=== PATIENT | male | born 1960 | race Caucasian/White ===

== ENCOUNTER 2017-06-18 14:21 | Inpatient (IN) | payer BC, OTHER ==
[~2017-06-18] VITALS: Ht 170.2 cm; Wt 87.5 kg
[~2017-06-18 14:21] MED LIST: AMLO10 PO; ASPI81 PO; CALC600T34 PO; CLOP75 PO; NEXI40CA PO; NIAS10004 PO; OMEG1CAP53 PO; PRAV40TA PO; TAB-TAB PO; TOPR50TA PO; VITA400C70 PO
[2017-06-18 14:24] VITALS: BP 138/72; PULSE 87; RESP 12; TEMP 98.4; O2SAT 97
[2017-06-18 15:53] VITALS: BP 132/85; PULSE 76; RESP 18; O2SAT 99
[2017-06-18] MEDS ORDERED: SODIUM CHLORIDE 0.9% FLUSH 10 ML FLUSH IV FLUSH PRN ×3 (16:00→18:45)
--- NOTE | 2017-06-18 16:06 | PD ---
HPI Chief Complaint: Edema Time Seen by Provider: 15:38 Travel History International Travel<30 days: No Contact w/Intl Traveler<30days: No Traveled to known affect area: No History of Present Illness HPI 57-year-old male with PMH of cirrhosis, chronic alcoholism presents to the ED for evaluation of three-month history of gradual abdominal distention. He states over the last few days the distention has grown to the point where he feels like he is having difficulties breathing. He denies headache, dizziness, fever, chills, chest pain, palpitations, cough, nausea, vomiting, changes in bowel habits. He states that he's been caring for his significant other which has kept him from seeking treatment. He denies history of paracentesis. He is followed by Dr. Brower. COUNTS INCLUDE 234 BEDS AT THE [facility] Past Medical History Blood Disorders: No Anxiety: Yes Heart Rhythm Problems: No Cancer: No Cardiac Catheterization: Yes Cardiovascular Problems: Yes High Cholesterol: Yes Chemotherapy: No Chest Pain: Yes Congestive Heart Failure: No Endocrine: No Gastrointestinal Disorders: Yes GERD: No Genitourinary: No Hepatitis: No Hiatal Hernia: No Hypertension: Yes Immune Disorder: No Medical other: Yes (faaty liver, cirrosis ) Musculoskeletal: No Neurologic: No Psychiatric: No Reproductive: No Respiratory: No Myocardial Infarction: No Radiation Therapy: No Ulcer: No Past Surgical History Abdominal Surgery: Yes (inginal hernia) AICD: No Appendectomy: Yes Arteriovenous Shunt: No Cardiac Surgery: No Cholecystectomy: No Ear Surgery: No Endocrine Surgery: No Eye Surgery: No Genitourinary Surgery: No Gynecologic Surgery: No Insulin Pump: No Joint Replacement: Yes (l knee) Oral Surgery: No Pacemaker: No Thoracic Surgery: No Other Surgery: Yes Social History Alcohol Use: Yes Tobacco Use: Yes (/2 pk) Substance Use: No Allergies-Medications (Allergen,Severity, Reaction): Coded Allergies: No Known Allergies (Verified Allergy, Severe, 06/18/17) Reported Meds & Prescriptions Reported Meds & Active Scripts Active Reported Allergy Relief (Loratadine) 10 Mg Tab 10 Mg PO DAILY Fluticasone Nasal [place] 50 Mcg/Act Naspr 100 Mcg EACH NARE DAILY 50 mcg/spray Aspirin 81 Mg Chew 81 Mg CHEW DAILY Buspirone (Buspirone HCl) 10 Mg Tab 10 Mg PO BID Clonazepam 1 Mg Tab 1 Mg PO BID Dicyclomine (Dicyclomine HCl) 10 Mg Cap 10 Mg PO TID Lisinopril 20 Mg Tab 20 Mg PO BID Amlodipine (Amlodipine Besylate) 10 Mg Tab 10 Mg PO DAILY Metoprolol Succinate ER 24 HR (Metoprolol Succinate) 50 Mg Tab 50 Mg PO DAILY Clopidogrel (Clopidogrel Bisulfate) 75 Mg Tab 75 Mg PO DAILY Pantoprazole (Pantoprazole Sodium) 40 Mg Tab 40 Mg PO DAILY Review of Systems Except as stated in HPI: all other systems reviewed are Neg Physical Exam Narrative GENERAL: Well-nourished, well-developed nontoxic-appearing white male in no acute distress. SKIN: Focused skin assessment warm/dry. HEAD: Normocephalic. EYES: No scleral icterus. No injection or drainage. NECK: Supple, trachea midline. No JVD or lymphadenopathy. CARDIOVASCULAR: Regular rate and rhythm without murmurs, gallops, or rubs. RESPIRATORY: Breath sounds clear and equal bilaterally. No accessory muscle use. GASTROINTESTINAL: Abdomen distended, tense, positive fluid wave. Nontender. MUSCULOSKELETAL: No cyanosis, or edema. Chronic skin changes in the bilateral lower extremities. BACK: Nontender without obvious deformity. No CVA tenderness. Data Data Last Documented VS Vital Signs Date Time Temp Pulse Resp B/P (MAP) Pulse Ox O2 Delivery O2 Flow Rate FiO2 06/18/17 15:53 73 19 100 06/18/17 15:53 132/85 (101) 06/18/17 14:24 98.4 Orders Orders Complete Blood Count With Diff (06/18/17 15:48) Comprehensive Metabolic Panel (06/18/17 15:48) Lactic Acid (06/18/17 15:48) Prothrombin Time / Inr (Pt) (06/18/17 15:48) Act Partial Throm Time (Ptt) (06/18/17 15:48) Urinalysis - C+S If Indicated (06/18/17 15:48) Iv Access Insert/Monitor (06/18/17 15:48) Ecg Monitoring (06/18/17 15:48) Oximetry (06/18/17 15:48) NPO (06/18/17 15:48) Sodium Chloride 0.9% Flush (Ns Flush) (06/18/17 16:00) Electrocardiogram (06/18/17 15:48) Ammonia (06/18/17 16:04) Alcohol (Ethanol) (06/18/17 16:10) Consult Gastroenterology (06/18/17 ) (Hub Use Only)Inp Phy Cons/Ref (06/18/17 ) Admit Order (Ed Use Only) (06/18/17 18:19) Labs Laboratory Tests Test 06/18/17 16:10 White Blood Count 6.1 TH/MM3 Red Blood Count 4.33 MIL/MM3 Hemoglobin 14.7 GM/DL Hematocrit 41.9 % Mean Corpuscular Volume 97.0 FL Mean Corpuscular Hemoglobin 34.0 PG Mean Corpuscular Hemoglobin Concent 35.0 % Red Cell Distribution Width 12.7 % Platelet Count 145 TH/MM3 Mean Platelet Volume 8.4 FL Neutrophils (%) (Auto) 60.9 % Lymphocytes (%) (Auto) 26.1 % Monocytes (%) (Auto) 11.2 % Eosinophils (%) (Auto) 1.0 % Basophils (%) (Auto) 0.8 % Neutrophils # (Auto) 3.7 TH/MM3 Lymphocytes # (Auto) 1.6 TH/MM3 Monocytes # (Auto) 0.7 TH/MM3 Eosinophils # (Auto) 0.1 TH/MM3 Basophils # (Auto) 0.0 TH/MM3 CBC Comment DIFF FINAL Differential Comment Prothrombin Time 12.9 SEC Prothromb Time International Ratio 1.3 RATIO Activated Partial Thromboplast Time 33.1 SEC Blood Urea Nitrogen 5 MG/DL Creatinine 0.68 MG/DL Random Glucose 66 MG/DL Total Protein 8.6 GM/DL Albumin 3.4 GM/DL Calcium Level 9.1 MG/DL Alkaline Phosphatase 159 U/L Aspartate Amino Transf (AST/SGOT) 24 U/L Alanine Aminotransferase (ALT/SGPT) 15 U/L Total Bilirubin 1.1 MG/DL Sodium Level 121 MEQ/L Potassium Level 4.4 MEQ/L Chloride Level 89 MEQ/L Carbon Dioxide Level 20.2 MEQ/L Anion Gap 12 MEQ/L Estimat Glomerular Filtration Rate 120 ML/MIN Lactic Acid Level 1.6 mmol/L Ammonia 11 MCMOL/L Ethyl Alcohol Level 34 MG/DL MDM Medical Decision Making Medical Screen Exam Complete: Yes Emergency Medical Condition: Yes Differential Diagnosis Alcohol cirrhosis versus liver failure versus ascites versus SBP versus electrolyte abnormality versus other Narrative Course 57-year-old male with PMH of cirrhosis, chronic alcoholism presents to the ED for evaluation of 3 month history of worsening belly distention, no states that he feels short of breath secondary to the size of his abdomen. Vitals reviewed. Patient is afebrile on presentation. On physical exam the patient has a markedly distended belly with positive fluid wave. Exam is otherwise unremarkable. EKG: Rate 76, sinus rhythm. MS interval 182, QRS 146, QTC 453 ms. Normal axis. LBBB. No acute ST changes. Reviewed by Dr. Mahan. CBC: WBC 6.1. Hemoglobin 14.7. Coags INR 1.3. CMP: Sodium 121, chloride 89, BUN 5, creatinine 0.68. Bilirubin 1.1. AST 24, ALT 15. Lactic acid 1.6. Ammonia 11 EtOH 34. UA pending Given the patient's hyponatremia, he'll be admitted to the medicine service. He 'll likely need paracentesis, possibly on an outpatient basis. Patient is agreeable to admission. He states that he is followed by Dr. Jennings, consult placed. I spoke with Dr. Wilcox who agrees to accept the patient to the medicine service. Please see medicine notes for disposition. Mago Kennedy Jun 18, 2017 16:06
[2017-06-18] MEDS ORDERED: CLON1TAB PO (16:34)
[2017-06-18] MEDS ORDERED: METO1TAB9 PO (16:34)
[2017-06-18] MEDS ORDERED: PANT40TA3 PO (16:34)
[2017-06-18] MEDS ORDERED: ASPI-516 CHEW (16:34)
[2017-06-18] MEDS ORDERED: LISI-515 PO (16:34)
[2017-06-18] MEDS ORDERED: BUSP10TA PO (16:34)
[2017-06-18] MEDS ORDERED: AMLO10TA2 PO (16:34)
[2017-06-18] MEDS ORDERED: FLUT50SP EACH NARE (16:34)
[2017-06-18] MEDS ORDERED: CLOP75TA PO (16:34)
[2017-06-18] MEDS ORDERED: LORA-650 PO (16:34)
[2017-06-18] MEDS ORDERED: DICY10CA12 PO (16:34)
[2017-06-18 16:36] LABS: AUTOMATED NEUTROPHIL # 3.7 TH/MM3 (1.8-7.7); BASOPHIL % 0.8 % (0.0-2.0); EOSINOPHIL # 0.1 TH/MM3 (0-0.4); HEMATOCRIT 41.9 % (39.0-51.0); HEMO FLAGS DIFF FINAL; LYMPH % 26.1 % (9.0-44.0); LYMPHOCYTE # 1.6 TH/MM3 (1.0-4.8); MONO % 11.2 % (0.0-8.0); NEUT % 60.9 % (16.0-70.0); PLATELET COUNT 145 TH/MM3 (150-450); RED BLOOD COUNT 4.33 MIL/MM3 (4.50-5.90); RED CELL DISTRIBUTION WIDTH 12.7 % (11.6-17.2); WHITE BLOOD COUNT 6.1 TH/MM3 (4.0-11.0)
[2017-06-18 16:49] LABS: APTT (PATIENT) 33.1 SEC (24.3-30.1); INTERNATIONAL NORMALIZED RATIO 1.3 RATIO; PROTHROMBIN TIME - PATIENT 12.9 SEC (9.8-11.6)
[2017-06-18 17:29] LABS: ALKALINE PHOSPHATASE 159 U/L (45-117); ALT (GPT) 15 U/L (12-78); ANION GAP 12 MEQ/L (5-15); AST (GOT) 24 U/L (15-37); BICARBONATE 20.2 MEQ/L (21.0-32.0); BLOOD UREA NITROGEN 5 MG/DL (7-18); CHLORIDE 89 MEQ/L (98-107); GLOMERULAR FILTRATION RATE 120 ML/MIN (>89); POTASSIUM 4.4 MEQ/L (3.5-5.1); TOTAL BILIRUBIN ADULT 1.1 MG/DL (0.2-1.0)
[2017-06-18 17:30] LABS: ALCOHOL 34 MG/DL (0-5)
[2017-06-18 17:32] LABS: SODIUM (NA) 121 MEQ/L (136-145)
[2017-06-18] MEDS ORDERED: LORazepam 2 MG TAB PO PRN (18:45)
[2017-06-18] MEDS ORDERED: LORazepam 2 MG/ML VIAL IV PUSH PRN ×4 (18:45)
[2017-06-18] MEDS ORDERED: cloNIDine HCL 0.1 MG TAB PO PRN (18:45)
[2017-06-18] MEDS ORDERED: MAGNESIUM HYDROXIDE SUSP 30 ML CUP PO PRN (18:45)
[2017-06-18] MEDS ORDERED: LACTULOSE SYRUP 20 GM/30 ML CUP PO PRN (18:45)
[2017-06-18] MEDS ORDERED: HALOPERIDOL LACTATE 5 MG/ML AMP IM PRN (18:45)
[2017-06-18] MEDS ORDERED: BISACODYL 10 MG SUPP RECTAL PRN (18:45)
[2017-06-18] MEDS ORDERED: ACETAMINOPHEN 325 MG TAB PO PRN ×2 (18:45)
[2017-06-18] MEDS ORDERED: MORPHINE SULFATE 4 MG/ML INJ IV PUSH PRN ×2 (18:45)
[2017-06-18] MEDS ORDERED: FLUMAZENIL 0.5 MG/5 ML VIAL IV PUSH PRN (18:45)
[2017-06-18] MEDS ORDERED: LORazepam 1 MG TAB PO PRN (18:45)
[2017-06-18] MEDS ORDERED: ONDANSETRON HCL 4 MG/2 ML VIAL IVP PRN (18:45)
[2017-06-18] MEDS ORDERED: SENNOSIDES 8.6 MG TAB PO PRN (18:45)
[2017-06-18] MEDS ORDERED: NALOXONE HCL 0.4 MG/ML AMP IV PUSH PRN (18:45)
--- NOTE | 2017-06-18 19:06 | HHI.HP ---
HPI Service [facility] Primary Care Physician Dwight Brower MD Admission Diagnosis hyponatremia, ascites Diagnoses: (1) Hyponatremia Diagnosis: Principal (2) Alcohol abuse Diagnosis: Principal (3) Cirrhosis Diagnosis: Principal (4) Ascites Diagnosis: Principal (5) Thrombocytopenia Diagnosis: Principal (6) Tobacco abuse Diagnosis: Principal Travel History International Travel<30 Days: No Contact w/Intl Traveler <30 Da: No Traveled to Known Affected Are: No History of Present Illness This is a 57-year-old male with a PMH of Alcohol Abuse, Cirrhosis, Anxiety, HTN and Tobacco Abuse who presented to the ER with complaints of abdominal pain and distention x2-3 months. States symptoms have been getting progressively worse over the last 3 days. Reports associated SOB from distention. Denies fever, chills. On arrival, BP 138/72, HR 87, O2 sat 97% on RA, Afebrile. CBC essentially unremarkable except for platelets 145, previously 183 on 09/01/07. Na 121. Lactic Acid normal. Ammonia 11. INR 1.3. Alcohol 34. U/a negative. +ascites on exam. Review of Systems Except as stated in HPI: all other systems reviewed are Neg ROS: 14 point review of systems otherwise negative. Past Family Social History Past Medical History PMH: Alcohol Abuse, Cirrhosis, Anxiety, HTN and Tobacco Abuse Past Surgical History PAST SURGICAL HISTORY: Appendectomy, Inguinal Hernia Repair, Knee Replacement Allergies: Coded Allergies: No Known Allergies (Verified Allergy, Severe, 06/18/17) Family History PAST FAMILY HISTORY: Reviewed. No h/o DM or CAD Social History PAST SOCIAL HISTORY: Positive for alcohol abuse. Smokes 1/2ppd. Negative for drugs. Physical Exam Vital Signs Vital Signs Date Time Temp Pulse Resp B/P (MAP) Pulse Ox O2 Delivery O2 Flow Rate FiO2 06/18/17 15:53 73 19 100 06/18/17 15:53 76 18 132/85 (101) 99 06/18/17 15:52 (94) 06/18/17 14:24 98.4 87 12 138/72 (94) 97 Physical Exam PE: GENERAL: Middle-aged male in no acute distress. HEENT: PERRLA, EOMI. No scleral icterus or conjunctival pallor. No lid lag or facial droop. CARDIOVASCULAR: Regular rate and rhythm. No obvious murmurs to auscultation. No chest tenderness to palpation. RESPIRATORY: No obvious rhonchi or wheezing. Clear to auscultation. Breath sounds equal bilaterally. GASTROINTESTINAL: Abdomen distended, +tense ascites, no tenderness to palpation. BS normal. MUSCULOSKELETAL: Extremities without clubbing, cyanosis, or edema. No obvious deformities. NEUROLOGICAL: Awake, alert and oriented x4. No focal neurologic deficits. Moving both upper and lower extremities spontaneously. Laboratory Laboratory Tests Test 06/18/17 16:10 White Blood Count 6.1 Red Blood Count 4.33 Hemoglobin 14.7 Hematocrit 41.9 Mean Corpuscular Volume 97.0 Mean Corpuscular Hemoglobin 34.0 Mean Corpuscular Hemoglobin Concent 35.0 Red Cell Distribution Width 12.7 Platelet Count 145 Mean Platelet Volume 8.4 Neutrophils (%) (Auto) 60.9 Lymphocytes (%) (Auto) 26.1 Monocytes (%) (Auto) 11.2 Eosinophils (%) (Auto) 1.0 Basophils (%) (Auto) 0.8 Neutrophils # (Auto) 3.7 Lymphocytes # (Auto) 1.6 Monocytes # (Auto) 0.7 Eosinophils # (Auto) 0.1 Basophils # (Auto) 0.0 CBC Comment DIFF FINAL Differential Comment Prothrombin Time 12.9 Prothromb Time International Ratio 1.3 Activated Partial Thromboplast Time 33.1 Blood Urea Nitrogen 5 Creatinine 0.68 Random Glucose 66 Total Protein 8.6 Albumin 3.4 Calcium Level 9.1 Alkaline Phosphatase 159 Aspartate Amino Transf (AST/SGOT) 24 Alanine Aminotransferase (ALT/SGPT) 15 Total Bilirubin 1.1 Sodium Level 121 Potassium Level 4.4 Chloride Level 89 Carbon Dioxide Level 20.2 Anion Gap 12 Estimat Glomerular Filtration Rate 120 Lactic Acid Level 1.6 Ammonia 11 Ethyl Alcohol Level 34 Result Diagram: 06/18/17 1610 06/18/17 1610 Caprini VTE Risk Assessment Caprini VTE Risk Assessment: No/Low Risk (score <= 1) VTE Pharm Contraindication: High risk for bleeding Caprini Risk Assessment Model Point Value = 1 Point Value = 2 Point Value = 3 Point Value = 5 Age 41-60 Minor surgery BMI > 25 kg/m2 Swollen legs Varicose veins or History of unexplained or recurrent spontaneous Oral contraceptives or hormone replacement Sepsis (< 1 month) Serious lung disease, including pneumonia (< 1 month) Abnormal pulmonary function Acute myocardial infarction Congestive heart failure (< 1 month) History of inflammatory bowel disease Medical patient at bed rest Age 61-74 Arthroscopic surgery Major open surgery (> 45 min) Laparoscopic surgery (> 45 min) Malignancy Confined to bed (> 72 hours) Immobilizing plaster cast Central venous access Age >= 75 History of VTE Family history of VTE Factor V Leiden Prothrombin [id number] Lupus anticoagulant Anticardiolipin antibodies Elevated serum homocysteine Heparin-induced thrombocytopenia Other congenital or acquired thrombophilia Stroke (< 1 month) Elective arthroplasty Hip, pelvis, or leg fracture Acute spinal cord injury (< 1 month) Prophylaxis Regimen Total Risk Factor Score Risk Level Prophylaxis Regimen 0-1 Low Early ambulation 2 Moderate Order ONE of the following: *Sequential Compression Device (SCD) *Heparin 5000 units SQ BID 3-4 Higher Order ONE of the following medications: *Heparin 5000 units SQ TID *Enoxaparin/Lovenox 40 mg SQ daily (WT < 150 kg, CrCl > 30 mL/min) *Enoxaparin/Lovenox 30 mg SQ daily (WT < 150 kg, CrCl > 10-29 mL/min) *Enoxaparin/Lovenox 30 mg SQ BID (WT < 150 kg, CrCl > 30 mL/min) AND/OR *Sequential Compression Device (SCD) 5 or more Highest Order ONE of the following medications: *Heparin 5000 units SQ TID (Preferred with Epidurals) *Enoxaparin/Lovenox 40 mg SQ daily (WT < 150 kg, CrCl > 30 mL/min) *Enoxaparin/Lovenox 30 mg SQ daily (WT < 150 kg, CrCl > 10-29 mL/min) *Enoxaparin/Lovenox 30 mg SQ BID (WT < 150 kg, CrCl > 30 mL/min) AND *Sequential Compression Device (SCD) Assessment and Plan Problem List: (1) Alcohol abuse ICD Code: F10.10 - Alcohol abuse, uncomplicated (2) Cirrhosis ICD Code: K74.60 - Unspecified cirrhosis of liver (3) Ascites ICD Code: R18.8 - Other ascites (4) Hyponatremia ICD Code: E87.1 - Hypo-osmolality and hyponatremia (5) Thrombocytopenia ICD Code: D69.6 - Thrombocytopenia, unspecified (6) Tobacco abuse ICD Code: Z72.0 - Tobacco use Assessment and Plan A/P: 1. Alcohol Abuse: Chronic. Alcohol 34, high risk for withdrawal, start CIWA, Seizure Precautions, MVT/Thiamine/Folate replacement. 2. Cirrhosis: Secondary to chronic alcohol abuse. LFTs normal, +coagulopathy w/ INR 1.3, no active bleeding at this time, will monitor closely. Ammonia normal. Repeat labs in am. 3. Ascites: c/o progressive abdominal distention, +tense ascites. IR Consult placed for US Guided Paracentesis, pending procedure. 4. Hyponatremia: Na 121, likely secondary to chronic alcohol abuse, repeat labs in am. 5. Thrombocytopenia: Platelets 145, previously 183 on 09/01/07. No active bleeding at this time, will monitor. Repeat labs in am. 6. Tobacco Abuse: Pt counselled. NicoDerm prn if needed. 7. DVT Prophylaxis: Pharmacologic contraindication secondary to high risk for bleed 8. Social work for d/c planning as needed. 9. Case discussed w/ ER physician at length. Physician Certification 2 Midnight Certification Type: Admission for Inpatient Services Order for Inpatient Services The services are ordered in accordance with Medicare regulations or non- Medicare payer requirements, as applicable. In the case of services not specified as inpatient-only, they are appropriately provided as inpatient services in accordance with the 2-midnight benchmark. Estimated LOS (days): 2 days is the estimated time the patient will need to remain in the hospital, assuming treatment plan goals are met and no additional complications. Post-Hospital Plan: Not yet determined Blanche Hernandez MD Jun 18, 2017 19:06
[2017-06-18 19:57] LABS: BLOOD, URINE NEG (NEG); GLUCOSE,URINE NEG (NEG); KETONE, URINE TRACE mg/dL (NEG); NITRITE,URINE NEG (NEG); PH, URINE 5.5 (5.0-8.5); URINE COLOR LIGHT-YELLOW (YELLW/STRAW)
[2017-06-18 20:00] VITALS: BP 114/61; PULSE 85; RESP 18; TEMP 97.2; O2SAT 97
[2017-06-18 20:01] LABS: COMMENT (UR) CULT NOT INDICATED; CULTURE IF INDICATED CULT NOT INDICATED
[2017-06-18] MEDS: DOCUSATE SODIUM 50 MG/SENNA 8.6 MG TAB PO SCH (21:00)
[2017-06-18] MEDS ORDERED: SODIUM CHLORIDE 0.9% FLUSH 10 ML FLUSH IV FLUSH SCH (21:00)
[2017-06-18] MEDS: busPIRone HCL 10 MG TAB PO SCH (21:21)
[2017-06-18] MEDS: LISINOPRIL 20 MG TAB PO SCH (21:21)
[2017-06-18] MEDS: SODIUM CHLORIDE 0.9% FLUSH 10 ML FLUSH IV FLUSH SCH (21:21)
[2017-06-18] MEDS: clonazePAM 1 MG TAB PO SCH (21:21)
[2017-06-19] VITALS (11 sets, daily range): BP systolic 85–102; BP diastolic 53–64; PULSE 78–103; RESP 16–20; TEMP 97.9–98.8; O2SAT 93–97
[2017-06-19 08:27] LABS: HEMOGLOBIN A1a 1.5 %; HEMOGLOBIN A1b 0.6 %; HEMOGLOBIN Ao 86.3 %; HEMOGLOBIN F 1.3 %; HEMOGLOBIN LA1C 1.7 %; HEMOGLOBIN P3 3.1 %
[2017-06-19 08:31] LABS: AUTOMATED NEUTROPHIL # 2.9 TH/MM3 (1.8-7.7); EOSINOPHIL % 0.8 % (0.0-4.0); HEMATOCRIT 38.8 % (39.0-51.0); HEMO FLAGS DIFF FINAL; LYMPH % 24.3 % (9.0-44.0); LYMPHOCYTE # 1.1 TH/MM3 (1.0-4.8); MEAN CELL VOLUME 96.7 FL (80.0-100.0); MEAN CORPUSCULAR HEMOGLOBIN 34.1 PG (27.0-34.0); MEAN CORPUSCULAR HGB CONC 35.3 % (32.0-36.0); MONO % 12.3 % (0.0-8.0); NEUT % 61.6 % (16.0-70.0); PLATELET COUNT 139 TH/MM3 (150-450); RED BLOOD COUNT 4.01 MIL/MM3 (4.50-5.90); WHITE BLOOD COUNT 4.7 TH/MM3 (4.0-11.0)
[2017-06-19 08:33] LABS: APTT (PATIENT) 32.7 SEC (24.3-30.1); INTERNATIONAL NORMALIZED RATIO 1.2 RATIO; PROTHROMBIN TIME - PATIENT 12.4 SEC (9.8-11.6)
[2017-06-19] MEDS: SODIUM CHLORIDE 1 GRAM TAB PO SCH ×3 (08:36→17:43)
[2017-06-19] MEDS: DICYCLOMINE HCL 10 MG CAP PO SCH ×3 (08:36→17:43)
[2017-06-19] MEDS: METOPROLOL SUCCINATE 50 MG EXTENDED RELEASE TAB PO SCH (08:36)
[2017-06-19] MEDS: PANTOPRAZOLE SOD 40 MG DELAYED RELEASE TAB PO SCH (08:36)
[2017-06-19] MEDS: MULTIVITAMINS/MINERALS THERAPEUTIC TAB PO SCH (08:36)
[2017-06-19] MEDS: clonazePAM 1 MG TAB PO SCH ×2 (08:36→21:00)
[2017-06-19] MEDS: THIAMINE HCL 100 MG TAB PO SCH (08:36)
[2017-06-19] MEDS: FOLIC ACID 1 MG TAB PO SCH (08:36)
[2017-06-19] MEDS: LISINOPRIL 20 MG TAB PO SCH (08:36)
[2017-06-19] MEDS: busPIRone HCL 10 MG TAB PO SCH ×2 (08:36→21:00)
[2017-06-19] MEDS: DOCUSATE SODIUM 50 MG/SENNA 8.6 MG TAB PO SCH ×2 (08:36→21:00)
[2017-06-19] MEDS: LORATADINE 10 MG TAB PO SCH (08:36)
[2017-06-19] MEDS: SODIUM CHLORIDE 0.9% FLUSH 10 ML FLUSH IV FLUSH SCH ×2 (08:36→21:00)
[2017-06-19] MEDS: FLUTICASONE PROPIONATE 50 MCG/ACT 16 GM NASAL SPRAY EACH NARE SCH (08:41)
[2017-06-19 08:52] LABS: ANION GAP 11 MEQ/L (5-15); AST (GOT) 22 U/L (15-37); BICARBONATE 21.7 MEQ/L (21.0-32.0); BLOOD UREA NITROGEN 6 MG/DL (7-18); CHLORIDE 93 MEQ/L (98-107); GLOMERULAR FILTRATION RATE 106 ML/MIN (>89); MAGNESIUM 1.7 MG/DL (1.5-2.5); POTASSIUM 4.1 MEQ/L (3.5-5.1); SODIUM (NA) 126 MEQ/L (136-145)
[2017-06-19 08:54] LABS: ALT (GPT) 11 U/L (12-78); LDH SERUM 134 U/L (87-241)
[2017-06-19] MEDS ORDERED: DEXTROSE 50% IN WATER 50 ML VIAL(D50) IV PUSH PRN (09:00)
[2017-06-19] MEDS ORDERED: GLUCAGON 1 MG/ML VIAL OTHER PRN (09:00)
[2017-06-19] MEDS ORDERED: PANTOPRAZOLE SOD 40 MG DELAYED RELEASE TAB PO SCH (09:00)
[2017-06-19 09:02] LABS: ALKALINE PHOSPHATASE 133 U/L (45-117); FREE T4 1.19 NG/DL (0.76-1.46); TOTAL BILIRUBIN ADULT 1.1 MG/DL (0.2-1.0)
--- NOTE | 2017-06-19 12:58 | PD.CONS ---
HPI History of Present Illness This is a 57-year-old male with a PMH of Alcohol Abuse, Cirrhosis, Anxiety, HTN and Tobacco Abuse who presented to the ER with complaints of abdominal pain and distention for the past 3 months. States symptoms have been getting progressively worse with associated SOB from distention. Denies nausea, vomiting, hematemesis, hematochezia or melena, fever, or chills. He has been having diarrhea for the past 6months and states he had a couple of colonoscopies with Dr. Jennings who is trying to figure out a cause. On arrival CBC essentially unremarkable except for low platelets, Na 121, Lactic Acid normal, Ammonia 11. INR 1.3, Alcohol 34. U/a negative. +ascites on exam, paracentesis ordered can't be performed due to being on Plavix. Currently started on Lasix and Aldactone. (Edgardo Palomino) PFSH Past Medical History PMH: Alcohol Abuse, Cirrhosis, Anxiety, HTN and Tobacco Abuse Past Surgical History PAST SURGICAL HISTORY: Appendectomy, Inguinal Hernia Repair, Knee Replacement (Edgardo Palomino) Coded Allergies: No Known Allergies (Verified Allergy, Severe, 06/18/17) Medications Current Medications Medications (Trade) Dose Ordered Sig/Lorraine Route Start Time Stop Time Status Last Admin (Buspar) 10 mg BID PO 06/18/17 21:00 06/19/17 08:36 (KlonoPIN) 1 mg BID PO 06/18/17 21:00 06/19/17 08:36 (Bentyl) 10 mg TID PO 06/19/17 09:00 06/19/17 08:36 (Flonase Manny Spr) 1 spray DAILY EACH NARE 06/19/17 09:00 (Claritin) 10 mg DAILY PO 06/19/17 09:00 06/19/17 08:36 (Toprol Xl) 50 mg DAILY PO 06/19/17 09:00 (Protonix) 40 mg DAILY PO 06/19/17 09:00 06/19/17 08:36 (NS Flush) 2 ml UNSCH PRN IV FLUSH 06/18/17 18:45 (NS Flush) 2 ml BID IV FLUSH 06/18/17 21:00 06/19/17 08:36 (Tylenol) 650 mg Q4H PRN PO 06/18/17 18:45 (Zofran Inj) 4 mg Q6H PRN IVP 06/18/17 18:45 (Tylenol) 650 mg Q6H PRN PO 06/18/17 18:45 (Roxicodone) 10 mg Q4H PRN PO 06/18/17 18:45 (Morphine Inj) 2 mg Q3H PRN IV PUSH 06/18/17 18:45 (Morphine Inj) 4 mg Q3H PRN IV PUSH 06/18/17 18:45 (Roxicodone) 5 mg Q4H PRN PO 06/18/17 18:45 (Narcan Inj) 0.4 mg UNSCH PRN IV PUSH 06/18/17 18:45 (Lizet-Colace) 1 tab BID PO 06/18/17 21:00 06/19/17 08:36 (Milk Of Magnesia Liq) 30 ml Q12H PRN PO 06/18/17 18:45 (Senokot) 17.2 mg Q12H PRN PO 06/18/17 18:45 (Dulcolax Supp) 10 mg DAILY PRN RECTAL 06/18/17 18:45 (Lactulose Liq) 30 ml DAILY PRN PO 06/18/17 18:45 (Romazicon Inj) 0.2 mg Q1M PRN IV PUSH 06/18/17 18:45 (Ativan) 1 mg Q4H PRN PO 06/18/17 18:45 (Ativan Inj) 1 mg Q4H PRN IV PUSH 06/18/17 18:45 (Ativan) 2 mg Q2H PRN PO 06/18/17 18:45 (Ativan Inj) 2 mg Q2H PRN IV PUSH 06/18/17 18:45 (Ativan Inj) 2 mg Q1H PRN IV PUSH 06/18/17 18:45 (Ativan Inj) 2 mg Q15M PRN IV PUSH 06/18/17 18:45 (Haldol Inj) 2 mg Q15M PRN IM 06/18/17 18:45 (Folate) 1 mg DAILY PO 06/19/17 09:00 06/24/17 08:59 06/19/17 08:36 (Vitamin B1) 100 mg DAILY PO 06/19/17 09:00 06/19/17 08:36 (Theragran M Tab) 1 tab DAILY PO 06/19/17 09:00 06/24/17 08:59 06/19/17 08:36 (Catapres) 0.1 mg Q6H PRN PO 06/18/17 18:45 (Sodium Chloride) 1 gm TID PO 06/19/17 09:00 06/19/17 08:36 (D50w (Vial) Inj) 50 ml UNSCH PRN IV PUSH 06/19/17 09:00 (Glucagon Inj) 1 mg UNSCH PRN OTHER 06/19/17 09:00 (Lasix) 20 mg DAILY PO 06/19/17 12:30 (Aldactone) 25 mg BID@,18 PO 06/19/17 18:00 Family History No family hx of colon or liver cancer Social History PAST SOCIAL HISTORY: Positive for alcohol abuse ( pt states a couple of drinks a day). Smokes 1/2ppd. Negative for drugs. (Edgardo Palomino) Review of Systems Constitutional: COMPLAINS OF: Fatigue, Weight loss Endocrine: DENIES: Polyuria Eyes: DENIES: Double Vision Ears, nose, mouth, throat: DENIES: Hoarseness Respiratory: COMPLAINS OF: Shortness of breath Cardiovascular: DENIES: Lower Extremity Edema Gastrointestinal: COMPLAINS OF: Abdominal pain, Diarrhea, Swelling of Abdomen, DENIES: Black stools, Bloody stools, Constipation, Nausea, Vomiting, Difficulty Swallowing, Anorexia, Odynophagia, Heartburn, Hematemesis Genitourinary: DENIES: Hematuria Musculoskeletal: DENIES: Back pain Integumentary: DENIES: Jaundice Hematologic/lymphatic: DENIES: Bruising Immunologic/allergic: DENIES: Eczema Neurologic: DENIES: Abnormal gait Psychiatric: DENIES: Anxiety (Edgardo Palomino) GI Exam Vitals I&O Vital Signs Date Time Temp Pulse Resp B/P (MAP) Pulse Ox O2 Delivery O2 Flow Rate FiO2 06/19/17 08:01 97.9 92 16 100/58 (72) 97 06/19/17 05:50 98.6 78 20 95/64 (74) 95 06/19/17 04:00 80 06/19/17 03:43 93 06/19/17 00:00 80 06/19/17 00:00 98.2 84 20 96/53 (67) 93 06/18/17 20:00 97.2 85 18 114/61 (78) 97 06/18/17 20:00 Room Air 06/18/17 15:53 73 19 100 06/18/17 15:53 76 18 132/85 (101) 99 06/18/17 15:52 (94) 06/18/17 14:24 98.4 87 12 138/72 (94) 97 I/O 06/18/17 06/18/17 06/18/17 06/19/17 06/19/17 06/19/17 07:00 15:00 23:00 07:00 15:00 23:00 Intake Total 240 ml Balance 240 ml Intake Oral 240 ml # Voids 3 Laboratory Test 06/18/17 16:10 06/18/17 19:20 06/19/17 07:28 White Blood Count 6.1 TH/MM3 4.7 TH/MM3 Red Blood Count 4.33 MIL/MM3 4.01 MIL/MM3 Hemoglobin 14.7 GM/DL 13.7 GM/DL Hematocrit 41.9 % 38.8 % Mean Corpuscular Volume 97.0 FL 96.7 FL Mean Corpuscular Hemoglobin 34.0 PG 34.1 PG Mean Corpuscular Hemoglobin Concent 35.0 % 35.3 % Red Cell Distribution Width 12.7 % 13.0 % Platelet Count 145 TH/MM3 139 TH/MM3 Mean Platelet Volume 8.4 FL 9.0 FL Neutrophils (%) (Auto) 60.9 % 61.6 % Lymphocytes (%) (Auto) 26.1 % 24.3 % Monocytes (%) (Auto) 11.2 % 12.3 % Eosinophils (%) (Auto) 1.0 % 0.8 % Basophils (%) (Auto) 0.8 % 1.0 % Neutrophils # (Auto) 3.7 TH/MM3 2.9 TH/MM3 Lymphocytes # (Auto) 1.6 TH/MM3 1.1 TH/MM3 Monocytes # (Auto) 0.7 TH/MM3 0.6 TH/MM3 Eosinophils # (Auto) 0.1 TH/MM3 0.0 TH/MM3 Basophils # (Auto) 0.0 TH/MM3 0.0 TH/MM3 CBC Comment DIFF FINAL DIFF FINAL Differential Comment Prothrombin Time 12.9 SEC 12.4 SEC Prothromb Time International Ratio 1.3 RATIO 1.2 RATIO Activated Partial Thromboplast Time 33.1 SEC 32.7 SEC Blood Urea Nitrogen 5 MG/DL 6 MG/DL Creatinine 0.68 MG/DL 0.76 MG/DL Random Glucose 66 MG/DL 68 MG/DL Total Protein 8.6 GM/DL 7.6 GM/DL Albumin 3.4 GM/DL 2.9 GM/DL Calcium Level 9.1 MG/DL 9.1 MG/DL Alkaline Phosphatase 159 U/L 133 U/L Aspartate Amino Transf (AST/SGOT) 24 U/L 22 U/L Alanine Aminotransferase (ALT/SGPT) 15 U/L 11 U/L Total Bilirubin 1.1 MG/DL 1.1 MG/DL Sodium Level 121 MEQ/L 126 MEQ/L Potassium Level 4.4 MEQ/L 4.1 MEQ/L Chloride Level 89 MEQ/L 93 MEQ/L Carbon Dioxide Level 20.2 MEQ/L 21.7 MEQ/L Anion Gap 12 MEQ/L 11 MEQ/L Estimat Glomerular Filtration Rate 120 ML/MIN 106 ML/MIN Lactic Acid Level 1.6 mmol/L Ammonia 11 MCMOL/L Ethyl Alcohol Level 34 MG/DL Urine Color LIGHT-YELLOW Urine Turbidity CLEAR Urine pH 5.5 Urine Specific [place] 1.003 Urine Protein NEG mg/dL Urine Glucose (UA) NEG mg/dL Urine Ketones TRACE mg/dL Urine Occult Blood NEG Urine Nitrite NEG Urine Bilirubin NEG Urine Urobilinogen LESS THAN 2.0 MG/DL Urine Leukocyte Esterase NEG Urine WBC LESS THAN 1 /hpf Microscopic Urinalysis Comment CULT NOT INDICATED Phosphorus Level 3.3 MG/DL Magnesium Level 1.7 MG/DL Lactate Dehydrogenase 134 U/L Hemoglobin A1c 4.9 % Free Thyroxine 1.19 NG/DL Thyroid Stimulating Hormone 3rd Gen 1.910 uIU/ML Physical Examination HEENT: normocephalic; atraumatic; no jaundice. NECK: Neck is supple, no JVD, no lymphadenopathy. CHEST: Chest is clear to auscultation and percussion. CARDIAC: Regular rate and rhythm with no murmur gallop or rubs. ABDOMEN: Firm, distended, nontender; hepatosplenomegaly; bowel sounds are present in all four quadrants. + ascites EXTREMITIES: No clubbing, cyanosis, or edema. SKIN: Normal; no rash; no jaundice. SAS DEVELOPER: No focal deficits; alert and oriented times three. (Amawi,Khawla AUDIT ASSOCIATE) Assessment and Plan Plan - Ascites, hx of cirrhosis- distention for the past 3 months. States symptoms have been getting progressively worse with associated SOB from distention. Denies nausea, vomiting, hematemesis, hematochezia or melena, fever, or chills. He has been having diarrhea for the past 6months and states he had a couple of colonoscopies with Dr. Jennings who is trying to figure out a cause. On arrival CBC essentially unremarkable except for low platelets, Na 121, Lactic Acid normal, Ammonia 11. INR 1.3, Alcohol 34. U/a negative. +ascites on exam, paracentesis ordered can't be performed due to being on Plavix. Currently started on Lasix and Aldactone. - Thrombocytopenia- Secondary to above - Alcohol abuse- counselled on cessation - Electrolyte abnormalities- likely caused by alcohol, replaced by attending Plan: - low salt diet - Alcohol cessation - Cont. Lasix and Aldactone - Paracentesis as an op once Plavix is held for 5 days - F/u with GI upon discharge - Will need EGD if not done - Supportive care - Patient seen and examined by Dr. Booker and myself and this note is written on his behalf. (Edgardo Palomino) Physician Comments Seen and examined, plan as above . Will follow up with you. (Ramesh Bookre MD) Edgardo Palomino Jun 19, 2017 12:58 Ramesh Booker MD Jun 19, 2017 18:16
[2017-06-19] MEDS: FUROSEMIDE 20 MG TAB PO SCH (13:55)
--- NOTE | 2017-06-19 14:52 | HHI.PR ---
Subjective Remarks Follow-up ascites. Reports of abdominal pressure from distention. Denies fever , chills, nausea, vomiting, UTI symptoms and diarrhea. Unable to do paracentesis needs to be off Plavix for 5 days. Takes antiplatelets including aspirin for history of TIA. Objective Vitals Vital Signs Date Time Temp Pulse Resp B/P (MAP) Pulse Ox O2 Delivery O2 Flow Rate FiO2 06/19/17 08:01 97.9 92 16 100/58 (72) 97 06/19/17 05:50 98.6 78 20 95/64 (74) 95 06/19/17 04:00 80 06/19/17 03:43 93 06/19/17 00:00 80 06/19/17 00:00 98.2 84 20 96/53 (67) 93 06/18/17 20:00 97.2 85 18 114/61 (78) 97 06/18/17 20:00 Room Air 06/18/17 15:53 73 19 100 06/18/17 15:53 76 18 132/85 (101) 99 06/18/17 15:52 (94) I/O 06/18/17 06/18/17 06/18/17 06/19/17 06/19/17 06/19/17 07:00 15:00 23:00 07:00 15:00 23:00 Intake Total 240 ml Balance 240 ml Intake Oral 240 ml # Voids 3 Result Diagram: 06/19/1772706/19/17727 Objective Remarks GENERAL: Middle-aged male in no acute distress. HEENT: PERRLA, EOMI. No scleral icterus or conjunctival pallor. No lid lag or facial droop. CARDIOVASCULAR: Regular rate and rhythm. No obvious murmurs to auscultation. No chest tenderness to palpation. RESPIRATORY: No obvious rhonchi or wheezing. Clear to auscultation. Breath sounds equal bilaterally. GASTROINTESTINAL: Abdomen distended, +tense ascites, no tenderness to palpation. BS normal. MUSCULOSKELETAL: Extremities without clubbing, cyanosis, or edema. No obvious deformities. NEUROLOGICAL: Awake, alert and oriented x4. No focal neurologic deficits. Moving both upper and lower extremities spontaneously. Procedures none A/P Problem List: (1) Alcohol abuse ICD Code: F10.10 - Alcohol abuse, uncomplicated (2) Cirrhosis ICD Code: K74.60 - Unspecified cirrhosis of liver (3) Ascites ICD Code: R18.8 - Other ascites (4) Hyponatremia ICD Code: E87.1 - Hypo-osmolality and hyponatremia (5) Thrombocytopenia ICD Code: D69.6 - Thrombocytopenia, unspecified (6) Tobacco abuse ICD Code: Z72.0 - Tobacco use Assessment and Plan 1. Alcohol Abuse: Chronic. No evidence of withdrawal. Alcohol 34, high risk for withdrawal, the new CIWA, Seizure Precautions, MVT/Thiamine/Folate replacement. 2. Cirrhosis: Secondary to chronic alcohol abuse. LFTs normal, +coagulopathy w/ INR 1.3, no active bleeding at this time, will monitor closely. Ammonia normal. Continue beta apul 3. Ascites: c/o progressive abdominal distention, +tense ascites. IR unable to do paracentesis secondary to patient being on Antiplatelets need to be held for 5 days. We'll start diuresis with Lasix and Aldactone 4. Hyponatremia: Na 121, likely secondary to chronic alcohol abuse and cirrhosis, repeat labs showed improvement sodium 126 on sodium chloride tabs. Fluid restriction 5. Thrombocytopenia: Platelets 145, previously 183 on 09/01/07. No active bleeding at this time, will monitor. Stable 6. Tobacco Abuse: Pt counselled. NicoDerm prn if needed. 7. Hypertension. Discontinue Norvasc and lisinopril for now patient will be on diuretics DVT Prophylaxis: Pharmacologic contraindication secondary to high risk for bleed Discharge Planning Discharge in the morning need to watch BP with initiation of diuretics Bladimir Schulz MD Jun 19, 2017 14:52
[2017-06-19] MEDS ORDERED: THIA100 PO (14:57)
[2017-06-19] MEDS ORDERED: SPIR25 PO (14:57)
[2017-06-19] MEDS ORDERED: FURO20TA PO (14:57)
[2017-06-19] MEDS ORDERED: SODI1TAB PO (14:57)
--- NOTE | 2017-06-19 14:57 | HHI.DCPOC ---
Discharge Care Plan Diagnosis: (1) Cirrhosis (2) Ascites Your Health Problems Are: Difficulty with ADL Exercise Tolerance Goals to Promote Your Health * To prevent worsening of your condition and complications * To maintain your health at the optimal level Directions to Meet Your Goals Take your medications as prescribed Follow your dietary instruction Follow activity as directed Keep your appointments as scheduled Take your immunizations and boosters as scheduled If your symptoms worsen call your PCP, if no PCP go to Urgent Care Center or Emergency Room Smoking is Dangerous to Your Health. Avoid second hand smoke Call the 24-hour hour crisis hotline for domestic abuse at Bladimir Schulz MD Jun 19, 2017 14:57
--- NOTE | 2017-06-19 14:58 | HHI.FF ---
Face to Face Verification Diagnosis: (1) Cirrhosis (2) Ascites Home Health Nursing Order: Medical education Signs/symptoms of disease process Medication education-adverse effect Nursing assessment with vital signs I have seen patient Tanner Archuleta on 06/19/17. My clinical findings support the need for the requested home health care services because: Ltd mobility - disease progression I certify that my clinical findings support that this patient is homebound because: Unsafe to leave home unassisted Need for psychosocial assistance Bladimir Schulz MD Jun 19, 2017 14:58
[2017-06-19] MEDS: SPIRONOLACTONE 25 MG TAB PO SCH (17:43)
[2017-06-20] VITALS: PULSE 93
[2017-06-20 04:00] VITALS: BP 110/60; PULSE 89; PULSE 95; RESP 20; TEMP 98.2; O2SAT 92
[2017-06-20 08:00] VITALS: BP 104/66; PULSE 104; PULSE 108; RESP 20; TEMP 98; O2SAT 95
[2017-06-20] MEDS: SODIUM CHLORIDE 1 GRAM TAB PO SCH (08:19)
[2017-06-20] MEDS: DICYCLOMINE HCL 10 MG CAP PO SCH (08:19)
[2017-06-20] MEDS: MULTIVITAMINS/MINERALS THERAPEUTIC TAB PO SCH (08:19)
[2017-06-20] MEDS: FOLIC ACID 1 MG TAB PO SCH (08:19)
[2017-06-20] MEDS: busPIRone HCL 10 MG TAB PO SCH (08:19)
[2017-06-20] MEDS: THIAMINE HCL 100 MG TAB PO SCH (08:19)
[2017-06-20] MEDS: SPIRONOLACTONE 25 MG TAB PO SCH (08:19)
[2017-06-20] MEDS: PANTOPRAZOLE SOD 40 MG DELAYED RELEASE TAB PO SCH (08:19)
[2017-06-20] MEDS: FUROSEMIDE 20 MG TAB PO SCH (08:20)
[2017-06-20] MEDS: LORATADINE 10 MG TAB PO SCH (08:20)
[2017-06-20] MEDS: DOCUSATE SODIUM 50 MG/SENNA 8.6 MG TAB PO SCH (08:20)
[2017-06-20] MEDS: METOPROLOL SUCCINATE 50 MG EXTENDED RELEASE TAB PO SCH (08:21)
[2017-06-20] MEDS: clonazePAM 1 MG TAB PO SCH (08:23)
[2017-06-20] MEDS: SODIUM CHLORIDE 0.9% FLUSH 10 ML FLUSH IV FLUSH SCH (08:24)
[2017-06-20] MEDS: FLUTICASONE PROPIONATE 50 MCG/ACT 16 GM NASAL SPRAY EACH NARE SCH ×2 (08:24→09:00)
[2017-06-20 09:06] LABS: BICARBONATE 20.7 MEQ/L (21.0-32.0); MAGNESIUM 1.5 MG/DL (1.5-2.5); POTASSIUM 3.9 MEQ/L (3.5-5.1)
--- NOTE | 2017-06-20 10:35 | HHI.PR ---
Subjective Remarks Follow-up ascites. Denies abdominal pain. Tolerating diuretics. Left message with IR regarding outpatient paracentesis for this patient. Discussed with RN Objective Vitals Vital Signs Date Time Temp Pulse Resp B/P (MAP) Pulse Ox O2 Delivery O2 Flow Rate FiO2 06/20/17 08:00 98.0 108 20 104/66 (79) 95 06/20/17 04:00 98.2 95 20 110/60 (77) 92 06/20/17 04:00 89 06/20/17 00:00 93 06/19/17 20:00 Room Air 06/19/17 20:00 98.3 103 18 99/60 (73) 95 06/19/17 20:00 95 06/19/17 16:01 98.8 94 16 85/55 (65) 95 06/19/17 16:00 92 06/19/17 12:01 97.9 88 16 102/58 (73) 94 06/19/17 12:00 83 I/O 06/19/17 06/19/17 06/19/17 06/20/17 06/20/17 06/20/17 07:00 15:00 23:00 07:00 15:00 23:00 Intake Total 240 ml 480 ml 480 ml Balance 240 ml 480 ml 480 ml Intake Oral 240 ml 480 ml 480 ml # Voids 3 4 4 # Bowel Movements 1 1 Result Diagram: 06/19/17 0728 06/20/17 0807 Objective Remarks GENERAL: Middle-aged male in no acute distress. HEENT: PERRLA, EOMI. No scleral icterus or conjunctival pallor. No lid lag or facial droop. CARDIOVASCULAR: Regular rate and rhythm. No obvious murmurs to auscultation. No chest tenderness to palpation. RESPIRATORY: No obvious rhonchi or wheezing. Clear to auscultation. Breath sounds equal bilaterally. GASTROINTESTINAL: Abdomen distended, +tense ascites, no tenderness to palpation. BS normal. MUSCULOSKELETAL: Extremities without clubbing, cyanosis, or edema. No obvious deformities. NEUROLOGICAL: Awake, alert and oriented x4. No focal neurologic deficits. Moving both upper and lower extremities spontaneously. Procedures none A/P Problem List: (1) Alcohol abuse ICD Code: F10.10 - Alcohol abuse, uncomplicated (2) Cirrhosis ICD Code: K74.60 - Unspecified cirrhosis of liver (3) Ascites ICD Code: R18.8 - Other ascites (4) Hyponatremia ICD Code: E87.1 - Hypo-osmolality and hyponatremia (5) Thrombocytopenia ICD Code: D69.6 - Thrombocytopenia, unspecified (6) Tobacco abuse ICD Code: Z72.0 - Tobacco use Assessment and Plan 1. Alcohol Abuse: Chronic. No evidence of withdrawal. Alcohol 34, high risk for withdrawal, continue CIWA, Seizure Precautions, MVT/Thiamine/Folate replacement. 2. Cirrhosis: Secondary to chronic alcohol abuse. LFTs normal, +coagulopathy w/ INR 1.3, no active bleeding at this time, will monitor closely. Ammonia normal. Continue beta paul 3. Ascites: c/o progressive abdominal distention, +tense ascites. IR unable to do paracentesis secondary to patient being on Antiplatelets need to be held for 5 days. Continue diuresis with Lasix and Aldactone. Patient to undergo outpatient paracentesis on 06/23/17. Left message with IR patient to follow-up on Wednesday after crease was 4. Hyponatremia: Na 121, likely secondary to chronic alcohol abuse and cirrhosis, repeat labs showed improvement sodium 130 on sodium chloride tabs. Fluid restriction 5. Thrombocytopenia: Platelets 145, previously 183 on 09/01/07. No active bleeding at this time, will monitor. Stable 6. Tobacco Abuse: Pt counselled. NicoDerm prn if needed. 7. Hypertension. Discontinue Norvasc and lisinopril for now patient will be on diuretics DVT Prophylaxis: Pharmacologic contraindication secondary to high risk for bleed Discharge Planning Discharge patient to home Condition on discharge: Improved Regular Diet as tolerated Ad Philomena activity Rx written: Aldactone, Lasix, sodium chloride and thiamine Follow-up with primary care physician, GI and IR for ultrasound-guided paracentesis Problem Qualifiers (1) Ascites: Qualified Codes: R18.8 - Other ascites Bladimir Schulz MD Jun 20, 2017 10:35
[2017-06-20 12:00] VITALS: BP 104/61; PULSE 97; RESP 20; TEMP 98.1; O2SAT 97
--- NOTE | 2017-06-21 10:07 | EKG ---
Date Performed: 06/18/2017 Time Performed: 16:34:15 PTAGE: 57 years EKG: Sinus rhythm LEFT BUNDLE BRANCH BLOCK ABNORMAL ECG PREVIOUS TRACING : 09/01/2007 10.09 Compared to the previous tracing LBBB present DOCTOR: Madelyn Napier Interpretating Date/Time 06/21/2017 10:05:41
== END 2017-06-20 12:48 | disposition home or self-care (01) | DRG 433 ==
LOC: NEPE 14:21 → NEDA 18:21 → N04B 19:20
PROVIDERS: ADMIT Internal Medicine; ATTEND Internal Medicine
DX: K70.31 Alcoholic cirrhosis of liver with ascites (principal); E87.1 Hypo-osmolality and hyponatremia; D69.59 Other secondary thrombocytopenia; I10 Essential (primary) hypertension; I44.7 Left bundle-branch block, unspecified; Y90.1 Blood alcohol level of 20-39 mg/100 ml; R19.7 Diarrhea, unspecified; F10.10 Alcohol abuse, uncomplicated; F17.200 Nicotine dependence, unspecified, uncomplicated; F41.9 Anxiety disorder, unspecified; Z86.73 Personal history of transient ischemic attack (TIA), and cerebral infarction without residual deficits
CPT/HCPCS: 80048; 80053; 80307; 81001; 82140; 82948; 83036; 83605; 83615; 83735; 84100; 84439; 84443; 85025; 85610; 85730; 93005

== ENCOUNTER 2017-06-24 09:44 | Emergency (ER) | payer BC ==
[~2017-06-24] VITALS: Ht 170.2 cm; Wt 86.3 kg
[~2017-06-24 09:44] MED LIST changes: -AMLO10 PO; -ASPI81 PO; +BUSP10TA PO; -CALC600T34 PO; +CLON1TAB PO; -CLOP75 PO; +DICY10CA12 PO; +FLUT50SP EACH NARE; +FURO20TA PO; +LORA-650 PO; +METO1TAB9 PO; -NEXI40CA PO; -NIAS10004 PO; -OMEG1CAP53 PO; +PANT40TA3 PO; -PRAV40TA PO; +SODI1TAB PO; +SPIR25 PO; -TAB-TAB PO; +THIA100 PO; -TOPR50TA PO; -VITA400C70 PO
[2017-06-24 09:45] VITALS: BP 142/82; PULSE 93; RESP 16; TEMP 97.6; O2SAT 97
--- NOTE | 2017-06-24 11:45 | PD ---
HPI Chief Complaint: Medical Clearance Time Seen by Provider: 11:05 Travel History International Travel<30 days: No Contact w/Intl Traveler<30days: No Traveled to known affect area: No History of Present Illness HPI Patient comes in complaining of worsening ascites. Patient states he's been off his Plavix for 6 days. Patient states he tried to have paracentesis set up as an outpatient but was told it may take 6 weeks or longer for prior authorization for outpatient paracentesis. Patient reports he is having increasing shortness of breath has not been able to eat anything secondary to not having room in his stomach. Patient reports he was sent by his primary care doctor to see about having paracentesis done emergently secondary to worsening symptoms. Describes a pressure sensation throughout his abdomen without radiation. Denies anything making it better. Reports pain progressively worse. Denies any fevers, chest pain, nausea, vomiting, or other complaints. PFSH Past Medical History Hx Anticoagulant Therapy: Yes (plavix stopped jun 19) Blood Disorders: No Anxiety: Yes Depression: No Heart Rhythm Problems: No Cancer: No Cardiac Catheterization: Yes Cardiovascular Problems: Yes (cath found blockage no stents) High Cholesterol: Yes Chemotherapy: No Chest Pain: No Congestive Heart Failure: No Endocrine: No Gastrointestinal Disorders: Yes GERD: No Genitourinary: No Hepatitis: No Hiatal Hernia: No Hypertension: Yes Immune Disorder: No Musculoskeletal: No Neurologic: No Psychiatric: No Reproductive: No Respiratory: Yes Myocardial Infarction: No Radiation Therapy: No Ulcer: No Tetanus Vaccination: Unknown Influenza Vaccination: No Past Surgical History Abdominal Surgery: Yes (inginal hernia) AICD: No Appendectomy: Yes Arteriovenous Shunt: No Cardiac Surgery: No Cholecystectomy: No Ear Surgery: No Endocrine Surgery: No Eye Surgery: No Genitourinary Surgery: No Gynecologic Surgery: No Insulin Pump: No Joint Replacement: Yes (l knee) Oral Surgery: No Pacemaker: No Thoracic Surgery: No Other Surgery: Yes Social History Alcohol Use: Yes Tobacco Use: Yes (1/2 pk) Substance Use: No Allergies-Medications (Allergen,Severity, Reaction): Coded Allergies: No Known Allergies (Verified Allergy, Severe, 06/24/17) Reported Meds & Prescriptions Reported Meds & Active Scripts Active Gnp Vitamin B-1 (Thiamine HCl) 100 Mg Tab 100 Mg PO DAILY Furosemide 20 Mg Tab 20 Mg PO DAILY Sodium Chloride 1 Gram Tab 1 Gm PO BID Aldactone (Spironolactone) 25 Mg Tab 25 Mg PO BID@,18 Reported Allergy Relief (Loratadine) 10 Mg Tab 10 Mg PO DAILY Fluticasone Nasal [place] 50 Mcg/Act Naspr 100 Mcg EACH NARE DAILY 50 mcg/spray Buspirone (Buspirone HCl) 10 Mg Tab 10 Mg PO BID Clonazepam 1 Mg Tab 1 Mg PO BID Dicyclomine (Dicyclomine HCl) 10 Mg Cap 10 Mg PO TID Metoprolol Succinate ER 24 HR (Metoprolol Succinate) 50 Mg Tab 50 Mg PO DAILY Pantoprazole (Pantoprazole Sodium) 40 Mg Tab 40 Mg PO DAILY Review of Systems Except as stated in HPI: all other systems reviewed are Neg Physical Exam Narrative GENERAL: Well-developed, overly nourished, in no acute distress, and non-ill appearing. SKIN: Focused skin assessment warm and dry. HEAD: Atraumatic. Normocephalic. EYES: Pupils equal and round. EOMI. No scleral icterus. No injection or drainage. ENT: No nasal bleeding or discharge. Mucous membranes pink and moist. NECK: Trachea midline. Supple. No nuclear rigidity. CARDIOVASCULAR: Regular rate and rhythm. No murmur appreciated. RESPIRATORY: No accessory muscle use. No respiratory distress. Decreased breath sounds throughout. Breath sounds equal bilaterally. GASTROINTESTINAL: Abdomen soft, non-tender, distended with ascites, and no guarding. Hepatic and splenic margins not palpable. No pulsatile mass. MUSCULOSKELETAL: No obvious deformities. No clubbing. No cyanosis. No edema. Full range of motion. NEUROLOGICAL: Awake and alert. No obvious cranial nerve deficits. Motor grossly within normal limits. Normal speech. PSYCHIATRIC: Appropriate mood and affect; insight and judgment normal. Data Data Last Documented VS Vital Signs Date Time Temp Pulse Resp B/P (MAP) Pulse Ox O2 Delivery O2 Flow Rate FiO2 06/24/17 17:10 93 17 97/63 (74) 97 06/24/17 16:00 Room Air 06/24/17 09:45 97.6 Orders Orders Us Guided Abd Paracentesis (06/24/17 ) Peritoneal Cell Count + Diff (06/24/17 11:35) Total Protein Peritoneal Fluid (06/24/17 11:35) Albumin, Peritoneal Fluid (06/24/17 11:35) Glucose, Peritoneal Fluid (06/24/17 11:35) Ldh, Peritoneal Fluid (06/24/17 11:35) Amylase, Peritoneal Fluid (06/24/17 11:35) Fluid Culture And Gram Stain (06/24/17 11:35) Cytology Request For Service (06/24/17 11:35) Albumin 25% Inj (Albumin 25% Inj) (06/24/17 15:30) Ed Discharge Order (06/24/17 16:56) Labs Laboratory Tests Test 06/24/17 14:15 Peritoneal Fluid WBC 60 /MM3 Peritoneal Fluid RBC 490 /MM3 Peritoneal Fluid Neutrophils 11 % Peritoneal Fluid Lymphocytes 64 % Peritoneal Fluid Monocytes 20 % Peritoneal Fluid Histiocytes 5 % Peritoneal Fluid Total Protein 3.9 GM/DL Peritoneal Fluid Albumin 2.0 G/DL Peritoneal Fluid LDH 67 U/L Peritoneal Fluid Glucose 83 MG/DL MDM Medical Decision Making Medical Screen Exam Complete: Yes Emergency Medical Condition: Yes Differential Diagnosis Ascites, SBP, alcohol abuse, cirrhosis Narrative Course Patient in no obvious distress upon re-evaluation. Reports improvement of symptoms status post paracentesis. Discussed patient with Dr. Mahan prior to discharge, who saw evaluated the patient and is in agreement with plan of care and disposition. Any questions/concerns in reference to patient diagnosis/ condition discussed and clarified prior to patient's discharge. Reinforced sheer importance of close follow up with patient's primary physician or primary care clinic and GI. Instructed patient to return to ED immediately, if symptoms return/worsen. Patient showed understanding of above instructions. Further instructions and recommendations were detailed in discharge paperwork. Patient ambulated without difficulty out of ED at discharge. Physician Communication Physician Communication 1121 discussed patient with ultrasound see about possibly getting a diagnostic and therapeutic paracentesis done today. Informed they will discussed with the radiologist and called back. 1127 ultrasound reports radiologist will be able to do paracentesis today around 1300 and is requesting previous labs that were ordered to be ordered today. Diagnosis Primary Impression: Ascites Qualified Codes: R18.8 - Other ascites Patient Instructions: Abdominal Paracentesis (DC), Ascites (ED), General Instructions Additional Instructions: Follow-up with your primary care physician and GI doctor in 3-5 days for reevaluation. Return to the emergency department if symptoms get worse. Disposition: 01 DISCHARGE HOME Condition: Stable Mayco Liz Jun 24, 2017 11:45
[2017-06-24 15:15] VITALS: BP 124/76; PULSE 88; RESP 18; O2SAT 100
[2017-06-24 15:30] VITALS: BP 108/63; PULSE 90; RESP 18; O2SAT 97
[2017-06-24] MEDS ORDERED: ALBUMIN HUMAN 25% 75 GM IV ONE (15:30)
[2017-06-24 15:45] VITALS: BP 124/76; PULSE 88; RESP 18; O2SAT 100
[2017-06-24 16:00] VITALS: BP 108/63; PULSE 90; RESP 18; O2SAT 97
[2017-06-24 16:43] LABS: TOTAL PROTEIN,PERITONEAL FLUID 3.9 GM/DL
--- NOTE | 2017-06-24 16:51 | RADRPT ---
EXAM DATE/TIME: 06/24/2017 13:47 [facility] COMPARISON: No previous studies available for comparison. INDICATIONS : Ascites. MEDICAL HISTORY : Hypercholesterolemia. SURGICAL HISTORY : Appendectomy. Inguinal hernia repair. Cardiac catheterization. Knee surgeries. ENCOUNTER: Initial ACUITY: 4 - 6 days PAIN SCORE: 0/10 LOCATION: Right lower quadrant FLUID: Total volume of 16,000 cc of clear, yellow fluid was removed. Fluid was sent to lab for ordered studies. Post procedure scanning reveals no hematoma or other complication. TECHNIQUE: 1. Ultrasound guidance for abdominal paracentesis. 2. Paracentesis. The risks, benefits, and alternatives to ultrasound guided paracentesis were explained to the patient in detail including the risk of bleeding and infection. Written and verbal informed consent was obt ained. With the patient on the ultrasound table, ultrasound imaging was used to select the most appropriate approach for paracentesis. Overlying skin was prepped and draped in the usual sterile fashion and wi th a local anesthetic, a dermatotomy was made with an 11 blade scalpel. A 6 [place] [id number] ca theter was introduced into the peritoneal cavity and fluid was collected. The patient tolerated the procedure well and left the ultrasound suite in stable condition. CONCLUSION: Uncomplicated ultrasound guided paracentesis. Greg Patel MD on June 24, 2017 at 16:49 Board Certified Radiologist. This report was verified electronically.
--- NOTE | 2017-06-24 16:56 | PD ---
Data Data Last Documented VS Vital Signs Date Time Temp Pulse Resp B/P (MAP) Pulse Ox O2 Delivery O2 Flow Rate FiO2 06/24/17 17:10 93 17 97/63 (74) 97 06/24/17 16:00 Room Air 06/24/17 09:45 97.6 Orders Orders Us Guided Abd Paracentesis (06/24/17 ) Peritoneal Cell Count + Diff (06/24/17 11:35) Total Protein Peritoneal Fluid (06/24/17 11:35) Albumin, Peritoneal Fluid (06/24/17 11:35) Glucose, Peritoneal Fluid (06/24/17 11:35) Ldh, Peritoneal Fluid (06/24/17 11:35) Amylase, Peritoneal Fluid (06/24/17 11:35) Fluid Culture And Gram Stain (06/24/17 11:35) Cytology Request For Service (06/24/17 11:35) Albumin 25% Inj (Albumin 25% Inj) (06/24/17 15:30) Ed Discharge Order (06/24/17 16:56) Labs Laboratory Tests Test 06/24/17 14:15 Peritoneal Fluid WBC 60 /MM3 Peritoneal Fluid RBC 490 /MM3 Peritoneal Fluid Neutrophils 11 % Peritoneal Fluid Lymphocytes 64 % Peritoneal Fluid Monocytes 20 % Peritoneal Fluid Histiocytes 5 % Peritoneal Fluid Total Protein 3.9 GM/DL Peritoneal Fluid Albumin 2.0 G/DL Peritoneal Fluid LDH 67 U/L Peritoneal Fluid Glucose 83 MG/DL MDM Medical Record Reviewed: Yes Supervised Visit with MARLY: Yes Narrative Course I, Dr. noble, have reviewed the advance practice practitioner's documentation and am in agreement, met with the patient face to face, made the diagnosis, and the medical decision making was done by me. *My assessment and Findings: Paracentesis performed by invasive radiology. The patient returned here received albumin. Vital signs remained stable. Patient's primary care provider Dr. Benitez follow-up the results of the evaluation. Diagnosis Primary Impression: Ascites Qualified Codes: R18.8 - Other ascites Additional Impression: Cirrhosis Qualified Codes: K74.60 - Unspecified cirrhosis of liver Disposition: 01 DISCHARGE HOME Condition: Stable Miller Noble MD Jun 24, 2017 16:56
[2017-06-24 17:10] VITALS: BP 97/63
[2017-06-24 17:21] LABS: PERITONEAL HISTIOCYTES 5 %; PERITONEAL LYMPHS 64 %; PERITONEAL MONOS 20 %; PERITONEAL POLYS(SEGS) 11 %
[2017-06-24 17:27] LABS: PERITONEAL RBC 490 /MM3 (0-0)
[2017-06-26 12:48] LABS: AMYLASE BODY FLUID 33 U/L; AMYLASE BODY FLUID TYPE PERITONEAL
== END 2017-06-24 17:24 | disposition home or self-care (01) ==
LOC: NEPC 09:44
DX: R18.8 Other ascites (principal); K74.60 Unspecified cirrhosis of liver; R06.02 Shortness of breath; I10 Essential (primary) hypertension; Z72.0 Tobacco use; Z79.01 Long term (current) use of anticoagulants
CPT/HCPCS: 49083; 82042; 82150; 82945; 83615; 84157; 87070; 87205; 88112; 89051; 96374; 99284; C1729; P9047

== ENCOUNTER 2017-08-02 09:25 | Day surgery (SDC) | payer BC ==
[2017-08-02 09:59] VITALS: BP 136/83; PULSE 84; RESP 14; TEMP 97; O2SAT 97
[2017-08-02] MEDS ORDERED: LIDOCAINE HCL 1% 20 ML VIAL ONE (10:08)
[2017-08-02] MEDS ORDERED: ALBUMIN 25% INJ 0 ML IV ONE (11:30)
[2017-08-02 12:05] VITALS: BP 104/63; PULSE 88; RESP 18; TEMP 98; O2SAT 97
[2017-08-02 12:20] VITALS: BP 103/69; PULSE 88; RESP 18; O2SAT 97
[2017-08-02 12:27] LABS: TOTAL PROTEIN,PERITONEAL FLUID 3.4 GM/DL
--- NOTE | 2017-08-02 12:58 | RADRPT ---
EXAM DATE/TIME: 08/02/2017 09:58 [facility] COMPARISON: US GUIDED ABD PARACENTESIS, June 24, 2017, 13:47. INDICATIONS : Ascites. MEDICAL HISTORY : Hypercholesterolemia. Cirrhosis. Gastroesophageal reflux disease. Hiatal hernia. CAD. HTN. Fatty l iver. Diverticulitis. Hyperlipdemia. SURGICAL HISTORY : Appendectomy. Inguinal hernia repair. Cardiac catheterization. Knee surgery. ENCOUNTER: Subsequent ACUITY: 2 weeks PAIN SCORE: 7/10 LOCATION: Right lower quadrant FLUID: Total volume of 13,100 cc of clear, yellow fluid was removed. Fluid was sent to lab for ordered studies. Post procedure scanning reveals no hematoma or other complication. TECHNIQUE: 1. Ultrasound guidance for abdominal paracentesis. 2. Paracentesis. The risks, benefits, and alternatives to ultrasound guided paracentesis were explained to the patient in detail including the risk of bleeding and infection. Written and verbal informed consent was obt ained. With the patient on the ultrasound table, ultrasound imaging was used to select the most appropriate approach for paracentesis. Overlying skin was prepped and draped in the usual sterile fashion and wi th a local anesthetic, a dermatotomy was made with an 11 blade scalpel. A 6 [place] Citizen [id number]-[id number] ca theter was introduced into the peritoneal cavity and fluid was collected. The patient tolerated the procedure well and left the ultrasound suite in stable condition. CONCLUSION: Uncomplicated ultrasound guided paracentesis. Domingo Sam MD on August 02, 2017 at 12:56 Board Certified Radiologist. This report was verified electronically.
[2017-08-02 13:19] LABS: PERITONEAL HISTIOCYTES 21 %; PERITONEAL LYMPHS 45 %; PERITONEAL MESOTHELIAL 23 %; PERITONEAL MONOS 4 %; PERITONEAL POLYS(SEGS) 6 %; PERITONEAL RBC 57 /MM3 (0-0)
== END 2017-08-02 13:15 | disposition home or self-care (01) ==
LOC: HRAD 09:25 → HRIP 09:29 → HRAD 13:15
PROVIDERS: ATTEND Internal Medicine Gastroenterology
DX: R18.8 Other ascites (principal)
CPT/HCPCS: 49083; 82042; 84157; 87070; 87205; 89051; 96365; C1729; P9047

== ENCOUNTER 2017-08-23 09:50 | Day surgery (SDC) | payer BC ==
[2017-08-23] MEDS ORDERED: ALBUMIN 25% INJ 0 ML IV ONE (10:30)
[2017-08-23 11:35] VITALS: BP 110/67; PULSE 78; RESP 18; TEMP 97.6; O2SAT 97
[2017-08-23] MEDS ORDERED: LIDOCAINE HCL 1% 20 ML VIAL ONE (11:38)
[2017-08-23 11:50] VITALS: BP 117/74; PULSE 74; RESP 18; O2SAT 98
--- NOTE | 2017-08-23 11:50 | RADRPT ---
EXAM DATE/TIME: 08/23/2017 10:14 [facility] COMPARISON: US GUIDED ABD PARACENTESIS, August 02, 2017, 9:58. INDICATIONS : Ascites. MEDICAL HISTORY : Hypercholesterolemia. Cirrhosis. Gastroesophageal reflux disease. Hiatal hernia. CAD. HTN. Fatty live r. Diverticulitis. Hyperlipdemia. SURGICAL HISTORY : Appendectomy. Inguinal hernia repair. Cardiac catheterization. Knee surgery. ENCOUNTER: Initial ACUITY: 3 weeks PAIN SCORE: 0/10 LOCATION: Right lower quadrant FLUID: Total volume of 10,000 cc of clear, yellow fluid was removed. Fluid was discarded. Paracentesis was therapeutic only. Post procedure scanning reveals no hematoma or other complication. TECHNIQUE: 1. Ultrasound guidance for abdominal paracentesis. 2. Paracentesis. The risks, benefits, and alternatives to ultrasound guided paracentesis were explained to the patient in detail including the risk of bleeding and infection. Written and verbal informed consent was obt ained. With the patient on the ultrasound table, ultrasound imaging was used to select the most appropriate approach for paracentesis. Overlying skin was prepped and draped in the usual sterile fashion and wi th a local anesthetic, a dermatotomy was made with an 11 blade scalpel. A 6 [place] [id number]-K-[id number] ca theter was introduced into the peritoneal cavity and fluid was collected. The patient tolerated the procedure well and left the ultrasound suite in stable condition. CONCLUSION: Uncomplicated ultrasound guided paracentesis. Patient received albumin per protocol. Gray Jain MD FACR on August 23, 2017 at 11:49 Board Certified Radiologist. This report was verified electronically.
[2017-08-23 12:20] VITALS: BP 111/66; PULSE 71; RESP 18; O2SAT 98
[2017-08-23 12:50] VITALS: BP 103/66; PULSE 78; RESP 18; O2SAT 98
== END 2017-08-23 13:25 | disposition home or self-care (01) ==
LOC: HRAD 09:50 → HRIP 09:53 → HRAD 13:25
DX: R18.8 Other ascites (principal); K74.60 Unspecified cirrhosis of liver; I25.10 Atherosclerotic heart disease of native coronary artery without angina pectoris; I10 Essential (primary) hypertension; E78.00 Pure hypercholesterolemia, unspecified; K21.9 Gastro-esophageal reflux disease without esophagitis; K44.9 Diaphragmatic hernia without obstruction or gangrene; E78.5 Hyperlipidemia, unspecified
CPT/HCPCS: 49083; 96365; C1729; P9047

== ENCOUNTER 2017-10-01 17:52 | Inpatient (IN) | payer BC ==
[~2017-10-01] VITALS: Ht 175.3 cm; Wt 77.5 kg
[2017-10-01 08:15] VITALS: PULSE 78
[2017-10-01 14:00] VITALS: BP 107/63; PULSE 84; RESP 17; TEMP 96.7; O2SAT 93
[2017-10-01 18:00] VITALS: BP 117/67; PULSE 80; RESP 18; TEMP 97.6; O2SAT 99
[2017-10-01 18:42] VITALS: BP 135/87; PULSE 76; RESP 17; O2SAT 98
[2017-10-01] MEDS ORDERED: SODIUM CHLORID 0.9% 500 ML INJ 500 ML IV ONE (18:45)
--- NOTE | 2017-10-01 18:57 | PD ---
Physical Exam Date Seen by Provider: Oct 01, 2017 Time Seen by Provider: 18:45 Narrative I, Dr. Bernal, have reviewed the advance practice practitioner's documentation and am in agreement, met with the patient face to face, made the diagnosis, and the medical decision making was done by me. *My assessment and Findings: Patient seen and evaluated with PA, please see PA notes for further details. He has been having some mild episodes of confusion, has long had liver disease and cirrhosis and ascites, was seen by GI today and lab work was done which shows severe hyponatremia. At this point, patient will need to be admitted for IV correction of hyponatremia. He is currently awake, alert, oriented and answering questions appropriately in the ER. He reports no shortness of breath and vital signs are stable. Sodium was 119, done today at 1 PM. Data Data Last Documented VS Vital Signs Date Time Temp Pulse Resp B/P (MAP) Pulse Ox O2 Delivery O2 Flow Rate FiO2 10/01/17 18:42 76 17 135/87 (103) 98 Room Air 10/01/17 18:00 97.6 Orders Orders Sodium Chlorid 0.9% 500 Ml Inj (Ns 500 M (10/01/17 18:45) Ammonia (10/01/17 18:51) MDM Medical Record Reviewed: Yes Supervised Visit with MARLY: Yes Diagnosis Primary Impression: Hyponatremia Additional Impression: Cirrhosis Admitting Information Admitting Physician Requests: Admit Sharan Bernal MD Oct 01, 2017 18:57
[2017-10-01] MEDS ORDERED: HUMIBIDDM PO (19:10)
[2017-10-01] MEDS ORDERED: PLAV75TA29 PO (19:10)
[2017-10-01] MEDS ORDERED: SIME180C2 PO (19:10)
[2017-10-01] MEDS ORDERED: AMLO10TA2 PO (19:10)
[2017-10-01] MEDS ORDERED: DIPH50LI13 (19:10)
[2017-10-01] MEDS ORDERED: CETI10CH CHEW (19:10)
[2017-10-01] MEDS ORDERED: LOMO2.5T PO (19:10)
[2017-10-01] MEDS ORDERED: ALDA50TA2 PO (19:10)
[2017-10-01] MEDS ORDERED: ASPI81CH6 CHEW (19:10)
--- NOTE | 2017-10-01 19:17 | PD ---
HPI Chief Complaint: Abnormal Results Time Seen by Provider: 18:31 Travel History International Travel<30 days: No Contact w/Intl Traveler<30days: No Traveled to known affect area: No History of Present Illness HPI 57-year-old male with a history of alcoholic cirrhosis and end-stage liver disease presents to the emergency department for evaluation of hyponatremia that was found on lab results today. States he went to Dr. Jennings's office for a regular checkup and she ordered stat labs and found his sodium was very low. Patient does receive regular paracentesis but missed his previous appointment on September 20. Patient has had nausea and vomiting for several weeks in addition to his chronic diarrhea. and Araceli, states that he is worsened over the last 2 weeks. States that he "thinks he is well" but is not. She says that he has had confusion, weakness, and lower extremity edema. He is on Plavix and aspirin has been compliant with his medication up until today when he was advised to not take his medication at the request of Dr. Jennings. Denies chest pain, shortness of breath, or any other pain. states he is still drinking 3-4 alcoholic drinks a day. Says that he has actually cut down on the drinking from previous habits of an 18 pack per day. States he has no history of withdrawal symptoms. 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 PFSH Past Medical History Hx Anticoagulant Therapy: Yes (plavix stopped jun 19) Blood Disorders: No Anxiety: Yes Depression: No Heart Rhythm Problems: No Cancer: No Cardiac Catheterization: Yes Cardiovascular Problems: Yes (cath found blockage no stents) High Cholesterol: Yes Chemotherapy: No Chest Pain: No Congestive Heart Failure: No Endocrine: No Gastrointestinal Disorders: Yes GERD: No Genitourinary: No Hepatitis: No Hiatal Hernia: No Hypertension: Yes Immune Disorder: No Musculoskeletal: No Neurologic: No Psychiatric: No Reproductive: No Respiratory: Yes Myocardial Infarction: No Radiation Therapy: No Ulcer: No Past Surgical History Abdominal Surgery: Yes (inginal hernia) AICD: No Appendectomy: Yes Arteriovenous Shunt: No Cardiac Surgery: No Cholecystectomy: No Ear Surgery: No Endocrine Surgery: No Eye Surgery: No Genitourinary Surgery: No Gynecologic Surgery: No Insulin Pump: No Joint Replacement: Yes (l knee) Neurologic Surgery: No Oral Surgery: No Pacemaker: No Thoracic Surgery: No Other Surgery: Yes Social History Alcohol Use: Yes Tobacco Use: Yes (1/2 pk) Substance Use: No Allergies-Medications (Allergen,Severity, Reaction): Coded Allergies: No Known Allergies (Verified Allergy, Severe, 06/24/17) Reported Meds & Prescriptions Reported Meds & Active Scripts Active Gnp Vitamin B-1 (Thiamine HCl) 100 Mg Tab 100 Mg PO DAILY Furosemide 20 Mg Tab 20 Mg PO DAILY Sodium Chloride 1 Gram Tab 1 Gm PO BID Reported Mucinex DM (Dextromethorphan-Guaifenesin) 30-600 Mg Tab 1 Tab PO BID PRN Unisom (Diphenhydramine HCl) 50 Mg/30 Ml Liquid Cetirizine (Cetirizine HCl) 10 Mg Chew 10 Mg CHEW DAILY Simethicone 180 Mg Cap 180 Mg PO DAILY PRN Lomotil (Diphenoxylate-Atropine) 2.5-0.025 Mg Tab 1 Tab PO Q6H PRN Aspirin Low Dose (Aspirin) 81 Mg Chew 81 Mg CHEW DAILY Amlodipine (Amlodipine Besylate) 10 Mg Tab 10 Mg PO DAILY Plavix (Clopidogrel Bisulfate) 75 Mg Tab 75 Mg PO DAILY Aldactone (Spironolactone) 50 Mg Tab 50 Mg PO DAILY Fluticasone Nasal [place] 50 Mcg/Act Naspr 100 Mcg EACH NARE DAILY 50 mcg/spray Clonazepam 1 Mg Tab 1 Mg PO BID Dicyclomine (Dicyclomine HCl) 10 Mg Cap 10 Mg PO TID Metoprolol Succinate ER 24 HR (Metoprolol Succinate) 50 Mg Tab 50 Mg PO DAILY Pantoprazole (Pantoprazole Sodium) 40 Mg Tab 40 Mg PO DAILY Review of Systems Except as stated in HPI: all other systems reviewed are Neg Physical Exam Narrative GENERAL: WD, WN in NAD, no resting tremor SKIN: Focused skin assessment warm/dry. HEAD: Atraumatic. Normocephalic. EYES: Pupils equal and round. Mild scleral icterus. No injection or drainage. PERRLA, no nystagmus ENT: No nasal bleeding or discharge. Mucous membranes pink and moist. NECK: Trachea midline. No JVD. No lymphadenopathy CARDIOVASCULAR: Regular rate and rhythm. No murmur appreciated. RESPIRATORY: No accessory muscle use. Clear to auscultation. Breath sounds equal bilaterally. GASTROINTESTINAL: Abdomen protuberant, distended. Hepatic and splenic margins not palpable. No CVA tenderness MUSCULOSKELETAL: No obvious deformities. No clubbing. No cyanosis. No edema. Extremity wasting present NEUROLOGICAL: Awake and alert. No obvious cranial nerve deficits. Motor grossly within normal limits. Normal speech. PSYCHIATRIC: Appropriate mood and affect; insight and judgment normal. Data Data Last Documented VS Vital Signs Date Time Temp Pulse Resp B/P (MAP) Pulse Ox O2 Delivery O2 Flow Rate FiO2 10/01/17 18:42 76 17 135/87 (103) 98 Room Air 10/01/17 18:00 97.6 Orders Orders Sodium Chlorid 0.9% 500 Ml Inj (Ns 500 M (10/01/17 18:45) Ammonia (10/01/17 18:51) Admit Order (Ed Use Only) (10/01/17 19:31) Labs Laboratory Tests Test 10/01/17 19:00 Ammonia 17 MCMOL/L MDM Medical Decision Making Medical Screen Exam Complete: Yes Emergency Medical Condition: Yes Differential Diagnosis Hepatic encephalopathy, ascites, electrolyte imbalance Narrative Course 57-year-old male presents emergency department at the request of his pediatric physiatrist, Dick Vivas for evaluation of hyponatremia, ascites, and treatment of confusion that is worse over the last 2 weeks. Of note his , Araceli, states that patient has been confused and does not believe he actually has an illness. She says that patient does lie about his alcoholic intake but she says that he drinks 3-4 alcoholic drinks per day. His last drink was this morning. brought in his notes from today's visit. Vital signs are stable. Ammonia 17, Sodium 119, chloride 82, BUN/creatinine 6/0.85, alk phos 149. Exam findings demonstrate a 57-year-old male well-developed, well-nourished in no acute distress. Mild scleral icterus. No obvious resting tremor. Abdomen protuberant. Grade 5/5 upper and lower extremities. +1-2 bilateral lower edema. Normal saline IV bolus 500 cc initiated. Based off of the report from Dr. Jennings and her recommendations, will admit patient for hyponatremia, ascites, possible worsening hepatic encephalopathy. Recommend consulting Dr. Starkey, GI covering for Dr. Jennings. Sodium replacement. Diagnosis Primary Impression: Ascites Qualified Codes: K70.31 - Alcoholic cirrhosis of liver with ascites Additional Impression: Hyponatremia Admitting Information Admitting Physician Requests: Admit Condition: Stable Katia Ding Oct 01, 2017 19:17
--- NOTE | 2017-10-01 19:44 | HHI.HP ---
HPI Service [facility] Primary Care Physician Dwight Brower MD Admission Diagnosis hyponatremia, hepatic encephalopathy Diagnoses: (1) Hyponatremia Diagnosis: Principal (2) Cirrhosis Diagnosis: Principal (3) Ascites Diagnosis: Principal (4) Encephalopathy Diagnosis: Principal (5) Thrombocytopenia Diagnosis: Principal (6) Alcohol abuse Diagnosis: Principal (7) Tobacco abuse Diagnosis: Principal Travel History International Travel<30 Days: No Contact w/Intl Traveler <30 Da: No Traveled to Known Affected Are: No History of Present Illness This is a 57-year-old male with a PMH of Anxiety, HTN, Alcohol Abuse, Cirrhosis , Hepatic Encephalopathy, ESLD and Tobacco Abuse who was referred to the ER by his Hoof Trimmer, Dr. Jennings, for admission due to severe hyponatremia and paracentesis. Pt unable to provide much history due to confusion and underlying encephalopathy, history obtained from records and from at bedside. states pt scheduled for Paracentesis on 09/20/17, however they missed the appointment due to misunderstanding regarding the date. Was seen in office today by Dr. Jennings, had labs done showing Na 119 and referred to ER for admission. Pt denies any complaints at this time. Does admit to drinking, 3-4 beers per day. On arrival, BP 117/67, HR 80, O2 sat 99% RA, Afebrile. CBC at baseline. Na 119. LFTs stable in comparison to previous. Ammonia 17. INR 1.2. S/p IVF in ER Review of Systems Except as stated in HPI: all other systems reviewed are Neg ROS: 14 point review of systems otherwise negative. Past Family Social History Past Medical History PMH: Anxiety, HTN, Alcohol Abuse, Cirrhosis, Hepatic Encephalopathy, ESLD and Tobacco Abuse Past Surgical History PAST SURGICAL HISTORY: Inguinal Hernia Repair, Left Knee Replacement Allergies: Coded Allergies: No Known Allergies (Verified Allergy, Severe, 06/24/17) Family History PAST FAMILY HISTORY: Reviewed. No h/o DM or CAD Social History PAST SOCIAL HISTORY: Positive for alcohol abuse, previously 18 beers per day, now 3-4 beers per day. Smokes 1/2ppd. Negative for drugs. Physical Exam Vital Signs Vital Signs Date Time Temp Pulse Resp B/P (MAP) Pulse Ox O2 Delivery O2 Flow Rate FiO2 10/01/17 18:42 76 17 135/87 (103) 98 Room Air 10/01/17 18:42 85 17 98 10/01/17 18:00 97.6 80 18 117/67 (84) 99 Physical Exam PE: GENERAL: Middle-aged white male in no acute distress, awake and alert, intermittently confused. at bedside. HEENT: PERRLA, EOMI. No scleral icterus or conjunctival pallor. No lid lag or facial droop. CARDIOVASCULAR: Regular rate and rhythm. No obvious murmurs to auscultation. No chest tenderness to palpation. RESPIRATORY: No obvious rhonchi or wheezing. Clear to auscultation. Breath sounds equal bilaterally. GASTROINTESTINAL: Abdomen soft, non-tender, significantly distended abdomen, + ascites. BS normal. MUSCULOSKELETAL: Extremities without clubbing, cyanosis, or edema. No obvious deformities. NEUROLOGICAL: Awake, alert and oriented to person place, +confusion. No focal neurologic deficits. Moving both upper and lower extremities spontaneously. Laboratory Laboratory Tests Test 10/01/17 19:00 Caprini VTE Risk Assessment Caprini VTE Risk Assessment: No/Low Risk (score <= 1) Caprini Risk Assessment Model Point Value = 1 Point Value = 2 Point Value = 3 Point Value = 5 Age 41-60 Minor surgery BMI > 25 kg/m2 Swollen legs Varicose veins or History of unexplained or recurrent spontaneous Oral contraceptives or hormone replacement Sepsis (< 1 month) Serious lung disease, including pneumonia (< 1 month) Abnormal pulmonary function Acute myocardial infarction Congestive heart failure (< 1 month) History of inflammatory bowel disease Medical patient at bed rest Age 61-74 Arthroscopic surgery Major open surgery (> 45 min) Laparoscopic surgery (> 45 min) Malignancy Confined to bed (> 72 hours) Immobilizing plaster cast Central venous access Age >= 75 History of VTE Family history of VTE Factor V Leiden Prothrombin [id number] Lupus anticoagulant Anticardiolipin antibodies Elevated serum homocysteine Heparin-induced thrombocytopenia Other congenital or acquired thrombophilia Stroke (< 1 month) Elective arthroplasty Hip, pelvis, or leg fracture Acute spinal cord injury (< 1 month) Prophylaxis Regimen Total Risk Factor Score Risk Level Prophylaxis Regimen 0-1 Low Early ambulation 2 Moderate Order ONE of the following: *Sequential Compression Device (SCD) *Heparin 5000 units SQ BID 3-4 Higher Order ONE of the following medications: *Heparin 5000 units SQ TID *Enoxaparin/Lovenox 40 mg SQ daily (WT < 150 kg, CrCl > 30 mL/min) *Enoxaparin/Lovenox 30 mg SQ daily (WT < 150 kg, CrCl > 10-29 mL/min) *Enoxaparin/Lovenox 30 mg SQ BID (WT < 150 kg, CrCl > 30 mL/min) AND/OR *Sequential Compression Device (SCD) 5 or more Highest Order ONE of the following medications: *Heparin 5000 units SQ TID (Preferred with Epidurals) *Enoxaparin/Lovenox 40 mg SQ daily (WT < 150 kg, CrCl > 30 mL/min) *Enoxaparin/Lovenox 30 mg SQ daily (WT < 150 kg, CrCl > 10-29 mL/min) *Enoxaparin/Lovenox 30 mg SQ BID (WT < 150 kg, CrCl > 30 mL/min) AND *Sequential Compression Device (SCD) Assessment and Plan Problem List: (1) Hyponatremia ICD Code: E87.1 - Hypo-osmolality and hyponatremia (2) Cirrhosis ICD Code: K74.60 - Unspecified cirrhosis of liver (3) Ascites ICD Code: R18.8 - Other ascites Status: Acute (4) Encephalopathy ICD Code: G93.40 - Encephalopathy, unspecified (5) Thrombocytopenia ICD Code: D69.6 - Thrombocytopenia, unspecified (6) Alcohol abuse ICD Code: F10.10 - Alcohol abuse, uncomplicated (7) Tobacco abuse ICD Code: Z72.0 - Tobacco use Assessment and Plan A/P: 1. Hyponatremia: Na 119. Acute on Chronic. On salt tabs, will resume. S/p IVF in ER, will repeat labs this evening and again in am. Seizure Precautions. Telemetry. 2. Cirrhosis: Secondary to Alcohol Abuse. ESLD. Follows w/ Dr. Jennings as outpatient who referred to ER for admission, will consult. Records from GI office reviewed by me, will increase Lasix to 40mg qd, increase Aldactone to 100mg qd, start Rifaximin 550mg bid. 3. Ascites: Recurrent. Missed scheduled Paracentesis on 09/20/17, + significant ascites. Consult IR for therapeutic Paracentesis in am. Hold ASA/ Plavix. INR 1.2. Check fluid for cell count, cytology and culture. 4. Encephalopathy: Acute on Chronic, due to ESLD. Ammonia 17. reports significant side effects from Lactulose, will start Rifaximin. 5. Thrombocytopenia: Chronic. Will monitor for bleeding. Repeat labs in am, hold ASA/Plavix as above. 6. Alcohol Abuse: Continues to drink 3-4 beers, previously 18 beers/day. CIWA , Seizure Precautions, MVT/Thiamine/Folate 7. Tobacco Abuse: NicoDerm prn if needed. 8. DVT Prophylaxis: SCD/Teds 9. Social work for d/c planning as needed. 10. Case discussed w/ ER physician at length, labs/records/imaging reviewed by me. Physician Certification 2 Midnight Certification Type: Admission for Inpatient Services Order for Inpatient Services The services are ordered in accordance with Medicare regulations or non- Medicare payer requirements, as applicable. In the case of services not specified as inpatient-only, they are appropriately provided as inpatient services in accordance with the 2-midnight benchmark. Estimated LOS (days): 2 days is the estimated time the patient will need to remain in the hospital, assuming treatment plan goals are met and no additional complications. Post-Hospital Plan: Not yet determined Problem Qualifiers (1) Ascites: Qualified Codes: K70.31 - Alcoholic cirrhosis of liver with ascites Blanche Hernandez MD Oct 01, 2017 19:44
[2017-10-01] MEDS ORDERED: MORPHINE SULFATE 2 MG/ML SYRINGE IV PUSH PRN (19:45)
[2017-10-01] MEDS ORDERED: SODIUM CHLORIDE 0.9% FLUSH 10 ML FLUSH IV FLUSH PRN (19:45)
[2017-10-01] MEDS ORDERED: SENNOSIDES 8.6 MG TAB PO PRN (19:45)
[2017-10-01] MEDS ORDERED: LACTULOSE SYRUP 20 GM/30 ML CUP PO PRN (19:45)
[2017-10-01] MEDS ORDERED: MAGNESIUM HYDROXIDE SUSP 30 ML CUP PO PRN (19:45)
[2017-10-01] MEDS ORDERED: NON-FORMULARY DRUG (Dextromethorphan-Guaifenesin (Mucinex DM) 1 TAB) PO PRN (19:45)
[2017-10-01] MEDS ORDERED: DIPHENOXYLATE/ATROPINE 2.5 MG/0.025 MG TAB PO PRN (19:45)
[2017-10-01] MEDS ORDERED: BISACODYL 10 MG SUPP RECTAL PRN (19:45)
[2017-10-01 20:45] VITALS: BP 120/76; PULSE 78; RESP 18; TEMP 97.5; O2SAT 95
[2017-10-01] MEDS ORDERED: LORazepam 2 MG/ML VIAL IV PUSH PRN ×4 (21:00)
[2017-10-01] MEDS ORDERED: FLUMAZENIL 0.5 MG/5 ML VIAL IV PUSH PRN (21:00)
[2017-10-01] MEDS ORDERED: LORazepam 1 MG TAB PO PRN (21:00)
[2017-10-01] MEDS ORDERED: LORazepam 2 MG TAB PO PRN (21:00)
[2017-10-01] MEDS ORDERED: HALOPERIDOL LACTATE 5 MG/ML AMP IM PRN (21:00)
[2017-10-01] MEDS: SODIUM CHLORIDE 1 GRAM TAB PO SCH (21:22)
[2017-10-01] MEDS: clonazePAM 1 MG TAB PO SCH (21:22)
[2017-10-01] MEDS: DOCUSATE SODIUM 50 MG/SENNA 8.6 MG TAB PO SCH (21:22)
[2017-10-01] MEDS: RIFAXIMIN 550 MG TAB PO SCH (21:23)
[2017-10-01] MEDS: SODIUM CHLORIDE 0.9% FLUSH 10 ML FLUSH IV FLUSH SCH (21:25)
[2017-10-02] VITALS (9 sets, daily range): BP systolic 93–163; BP diastolic 55–72; PULSE 74–104; RESP 17–18; TEMP 97.4–99.2; O2SAT 92–98
[2017-10-02 07:54] LABS: INTERNATIONAL NORMALIZED RATIO 1.2 RATIO; PROTHROMBIN TIME - PATIENT 12.2 SEC (9.8-11.6)
[2017-10-02 08:00] LABS: AUTOMATED NEUTROPHIL # 3.7 TH/MM3 (1.8-7.7); BASOPHIL % 0.7 % (0.0-2.0); EOSINOPHIL % 0.8 % (0.0-4.0); HEMATOCRIT 37.5 % (39.0-51.0); HEMOGLOBIN 13.3 GM/DL (13.0-17.0); LYMPH % 25.4 % (9.0-44.0); LYMPHOCYTE # 1.5 TH/MM3 (1.0-4.8); MEAN CELL VOLUME 94.7 FL (80.0-100.0); MEAN CORPUSCULAR HEMOGLOBIN 33.6 PG (27.0-34.0); MEAN CORPUSCULAR HGB CONC 35.5 % (32.0-36.0); MEAN PLATELET VOLUME 7.4 FL (7.0-11.0); MONO % 10.4 % (0.0-8.0); MONOCYTE # 0.6 TH/MM3 (0-0.9); NEUT % 62.7 % (16.0-70.0); PLATELET COUNT 163 TH/MM3 (150-450); RED BLOOD COUNT 3.96 MIL/MM3 (4.50-5.90); RED CELL DISTRIBUTION WIDTH 13.2 % (11.6-17.2); WHITE BLOOD COUNT 5.9 TH/MM3 (4.0-11.0)
--- NOTE | 2017-10-02 08:24 | HHI.PR ---
Subjective Remarks This is a 57-year-old male with a PMH of Anxiety, HTN, Alcohol Abuse, Cirrhosis , Hepatic Encephalopathy, ESLD and Tobacco Abuse who was referred to the ER by his Machine Tech, Dr. Jennings, for admission due to severe hyponatremia and paracentesis. Pt unable to provide much history due to confusion and underlying encephalopathy, history obtained from records and from at bedside. states pt scheduled for Paracentesis on 09/20/17, however they missed the appointment due to misunderstanding regarding the date. Was seen in office today by Dr. Jennings, had labs done showing Na 119 and referred to ER for admission. Pt denies any complaints at this time. Does admit to drinking, 3-4 beers per day. On arrival , BP 117/67, HR 80, O2 sat 99% RA, Afebrile. CBC at baseline. Na 119. LFTs stable in comparison to previous. Ammonia 17. INR 1.2. S/p IVF in ER 10/02: Seen in his bedroom, awaiting for GI specialist consult, stable continue management for Hyponatremia discontinued Sodium chloride and started on IV fluids no nausea, vomit or diarrhea. also started on Albumin. as per Interventional Radiology not able to perform Paracentesis due to that the patient was on Plavix will need to be off Plavix for five days. Objective Vital Signs Date Time Temp Pulse Resp B/P (MAP) Pulse Ox O2 Delivery O2 Flow Rate FiO2 10/02/17 04:15 97.9 78 17 107/64 (78) 93 10/02/17 04:00 80 10/02/17 00:15 97.8 74 18 125/58 (80) 94 10/01/17 20:45 97.5 78 18 120/76 (91) 95 10/01/17 20:23 10/01/17 18:42 76 17 135/87 (103) 98 Room Air 10/01/17 18:42 85 17 98 10/01/17 18:00 97.6 80 18 117/67 (84) 99 I/O 10/01/17 10/01/17 10/01/17 10/02/17 10/02/17 10/02/17 07:00 15:00 23:00 07:00 15:00 23:00 Intake Total 500 ml 360 ml Balance 500 ml 360 ml Intake Oral 360 ml IV Total 500 ml # Voids 2 # Bowel Movements 0 Result Diagram: 10/02/17 0602 10/02/17 0043 Imaging No new imaging studies Procedures None Other Results Laboratory Tests Test 10/01/17 19:00 10/02/17 06:02 Ammonia 17 MCMOL/L White Blood Count 5.9 TH/MM3 Red Blood Count 3.96 MIL/MM3 Hemoglobin 13.3 GM/DL Hematocrit 37.5 % Mean Corpuscular Volume 94.7 FL Mean Corpuscular Hemoglobin 33.6 PG Mean Corpuscular Hemoglobin Concent 35.5 % Red Cell Distribution Width 13.2 % Platelet Count 163 TH/MM3 Mean Platelet Volume 7.4 FL Neutrophils (%) (Auto) 62.7 % Lymphocytes (%) (Auto) 25.4 % Monocytes (%) (Auto) 10.4 % Eosinophils (%) (Auto) 0.8 % Basophils (%) (Auto) 0.7 % Neutrophils # (Auto) 3.7 TH/MM3 Lymphocytes # (Auto) 1.5 TH/MM3 Monocytes # (Auto) 0.6 TH/MM3 Eosinophils # (Auto) 0.0 TH/MM3 Basophils # (Auto) 0.0 TH/MM3 CBC Comment DIFF FINAL Differential Comment Prothrombin Time 12.2 SEC Prothromb Time International Ratio 1.2 RATIO Activated Partial Thromboplast Time 31.7 SEC Objective Remarks GENERAL: Middle-aged white male in no acute distress, awake and alert, intermittently confused. at bedside. HEENT: PERRLA, EOMI. No scleral icterus or conjunctival pallor. No lid lag or facial droop. CARDIOVASCULAR: Regular rate and rhythm. No obvious murmurs to auscultation. No chest tenderness to palpation. RESPIRATORY: No obvious rhonchi or wheezing. Clear to auscultation. Breath sounds equal bilaterally. GASTROINTESTINAL: Abdomen soft, non-tender, significantly distended abdomen, + ascites. BS normal. MUSCULOSKELETAL: Extremities without clubbing, cyanosis, or edema. No obvious deformities. NEUROLOGICAL: Awake, alert and oriented to person place, +confusion. No focal neurologic deficits. Moving both upper and lower extremities spontaneously. Medications and IVs Current Medications Medications (Trade) Dose Ordered Sig/Lorraine Route Start Time Stop Time Status Last Admin (Aldactone) 100 mg DAILY PO 10/02/17 09:00 (Lasix) 40 mg DAILY PO 10/02/17 09:00 (Xifaxan) 550 mg BID PO 10/01/17 21:00 10/01/17 21:23 (NS Flush) 2 ml UNSCH PRN IV FLUSH 10/01/17 19:45 (NS Flush) 2 ml BID IV FLUSH 10/01/17 21:00 10/01/17 21:25 (Morphine Inj) 2 mg Q3H PRN IV PUSH 10/01/17 19:45 (Roxicodone) 5 mg Q4H PRN PO 10/01/17 19:45 (Lizet-Colace) 1 tab BID PO 10/01/17 21:00 10/01/17 21:22 (Milk Of Magnesia Liq) 30 ml Q12H PRN PO 10/01/17 19:45 (Senokot) 17.2 mg Q12H PRN PO 10/01/17 19:45 (Dulcolax Supp) 10 mg DAILY PRN RECTAL 10/01/17 19:45 (KlonoPIN) 1 mg BID PO 10/01/17 21:00 10/01/17 21:22 (Lomotil Tab) 1 tab Q6H PRN PO 10/01/17 19:45 (Toprol Xl) 50 mg DAILY PO 10/02/17 09:00 (Protonix) 40 mg DAILY PO 10/02/17 09:00 (Sodium Chloride) 1 gm BID PO 10/01/17 21:00 10/01/17 21:22 (Vitamin B1) 100 mg DAILY PO 10/02/17 09:00 (Folate) 1 mg DAILY PO 10/02/17 09:00 10/07/17 08:59 (Theragran M Tab) 1 tab DAILY PO 10/02/17 09:00 10/07/17 08:59 (Romazicon Inj) 0.2 mg Q1M PRN IV PUSH 10/01/17 21:00 (Ativan) 1 mg Q4H PRN PO 10/01/17 21:00 (Ativan Inj) 1 mg Q4H PRN IV PUSH 10/01/17 21:00 (Ativan) 2 mg Q2H PRN PO 10/01/17 21:00 (Ativan Inj) 2 mg Q2H PRN IV PUSH 10/01/17 21:00 (Ativan Inj) 2 mg Q1H PRN IV PUSH 10/01/17 21:00 (Ativan Inj) 2 mg Q15M PRN IV PUSH 10/01/17 21:00 (Haldol Inj) 2 mg Q15M PRN IM 10/01/17 21:00 A/P Assessment and Plan (1) Hyponatremia ICD Code: E87.1 - Hypo-osmolality and hyponatremia (2) Cirrhosis ICD Code: K74.60 - Unspecified cirrhosis of liver (3) Ascites ICD Code: R18.8 - Other ascites Status: Acute (4) Encephalopathy ICD Code: G93.40 - Encephalopathy, unspecified (5) Thrombocytopenia ICD Code: D69.6 - Thrombocytopenia, unspecified (6) Alcohol abuse ICD Code: F10.10 - Alcohol abuse, uncomplicated (7) Tobacco abuse ICD Code: Z72.0 - Tobacco use 1. Hyponatremia: Na 119. Acute on chronic now 123 removed Sodium Chloride and started on Normal saline low dose. 2. Cirrhosis: Secondary to Alcohol Abuse. ESLD. Follows w/ Dr. Jennings as outpatient, at this time asked for Interventional Radiology continue diuretics, Rifaximin 550 mg BID, Aldactone 100 mg daily, and Lasix 40 mg daily. 3. Ascites: Recurrent. Missed scheduled Paracentesis on 09/20/17, + significant ascites. Consult IR for therapeutic Paracentesis in am. Hold ASA/ Plavix. INR 1.2. Check fluid for cell count, cytology and culture. Plavix on hold for five days for Paracentesis. 4. Encephalopathy: Acute on Chronic, due to ESLD. Ammonia 17. reports significant side effects from Lactulose, will start Rifaximin. Improved. 5. Thrombocytopenia: Chronic. 6. Alcohol Abuse: Continues to drink 3-4 beers, previously 18 beers/day. CIWA , Seizure Precautions, MVT/Thiamine/Folate 7. Tobacco Abuse: NicoDerm prn if needed. DVT Prophylaxis: SCD/Teds Discharge Planning Once cleared by GI specialist. Hugo Zarate MD Oct 02, 2017 08:24
[2017-10-02 08:30] LABS: ALBUMIN 2.7 GM/DL (3.4-5.0); ALKALINE PHOSPHATASE 129 U/L (45-117); ALT (GPT) 9 U/L (12-78); AST (GOT) 15 U/L (15-37); BICARBONATE 26.5 MEQ/L (21.0-32.0); BLOOD UREA NITROGEN 6 MG/DL (7-18); CALCIUM 8.9 MG/DL (8.5-10.1); CHLORIDE 88 MEQ/L (98-107); CREATININE 0.87 MG/DL (0.60-1.30); GLOMERULAR FILTRATION RATE 90 ML/MIN (>89); GLUCOSE,RANDOM 71 MG/DL (74-106); TOTAL BILIRUBIN ADULT 1.2 MG/DL (0.2-1.0); TOTAL PROTEIN 7.2 GM/DL (6.4-8.2)
[2017-10-02 08:35] LABS: SODIUM (NA) 123 MEQ/L (136-145)
[2017-10-02] MEDS: clonazePAM 1 MG TAB PO SCH ×2 (08:56→21:22)
[2017-10-02] MEDS: MULTIVITAMINS/MINERALS THERAPEUTIC TAB PO SCH (08:56)
[2017-10-02] MEDS: SODIUM CHLORIDE 0.9% FLUSH 10 ML FLUSH IV FLUSH SCH ×2 (08:56→21:00)
[2017-10-02] MEDS: FUROSEMIDE 40 MG TAB PO SCH (08:57)
[2017-10-02] MEDS: DOCUSATE SODIUM 50 MG/SENNA 8.6 MG TAB PO SCH ×2 (08:57→21:22)
[2017-10-02] MEDS: FOLIC ACID 1 MG TAB PO SCH (08:57)
[2017-10-02] MEDS: SODIUM CHLORIDE 1 GRAM TAB PO SCH (08:58)
[2017-10-02] MEDS: THIAMINE HCL 100 MG TAB PO SCH (08:58)
[2017-10-02] MEDS: METOPROLOL SUCCINATE 50 MG EXTENDED RELEASE TAB PO SCH (08:58)
[2017-10-02] MEDS: RIFAXIMIN 550 MG TAB PO SCH ×2 (08:58→21:22)
[2017-10-02] MEDS: PANTOPRAZOLE SOD 40 MG DELAYED RELEASE TAB PO SCH (08:58)
[2017-10-02] MEDS: SPIRONOLACTONE 100 MG TAB PO SCH (09:00)
--- NOTE | 2017-10-02 13:03 | PD.CONS ---
HPI History of Present Illness This is a 57 year old male with a PMH of Anxiety, HTN, Alcohol Abuse, alcoholic Cirrhosis, Hepatic Encephalopathy, ESLD and Tobacco Abuse who was sent to the ED by Dr. Jennings, for admission due to abnormal op labs of severe hyponatremia 119 and to have paracentesis done. Pt was scheduled for Paracentesis on 09/20/17, however, he missed the appointment. Ascites seem to be refractory to diuretics, he is not following a 100 % low salt diet. Pt denies nausea, vomiting, abd pain, diarrhea, melena or hematochezia. Does admit to drinking a couple of beers per day. (Edgardo Palomino) PFSH Past Medical History PMH: Anxiety, HTN, Alcohol Abuse, Cirrhosis, Hepatic Encephalopathy, ESLD and Tobacco Abuse Past Surgical History PAST SURGICAL HISTORY: Inguinal Hernia Repair, Left Knee Replacement (Edgardo Palomino) Coded Allergies: No Known Allergies (Verified Allergy, Severe, 06/24/17) Medications Current Medications Medications (Trade) Dose Ordered Sig/Lorraine Route Start Time Stop Time Status Last Admin (Aldactone) 100 mg DAILY PO 10/02/17 09:00 (Lasix) 40 mg DAILY PO 10/02/17 09:00 10/02/17 08:57 (Xifaxan) 550 mg BID PO 10/01/17 21:00 10/02/17 08:58 (NS Flush) 2 ml UNSCH PRN IV FLUSH 10/01/17 19:45 (NS Flush) 2 ml BID IV FLUSH 10/01/17 21:00 10/02/17 08:56 (Morphine Inj) 2 mg Q3H PRN IV PUSH 10/01/17 19:45 (Roxicodone) 5 mg Q4H PRN PO 10/01/17 19:45 (Lizet-Colace) 1 tab BID PO 10/01/17 21:00 10/02/17 08:57 (Milk Of Magnesia Liq) 30 ml Q12H PRN PO 10/01/17 19:45 (Senokot) 17.2 mg Q12H PRN PO 10/01/17 19:45 (Dulcolax Supp) 10 mg DAILY PRN RECTAL 10/01/17 19:45 (KlonoPIN) 1 mg BID PO 10/01/17 21:00 10/02/17 08:56 (Lomotil Tab) 1 tab Q6H PRN PO 10/01/17 19:45 (Toprol Xl) 50 mg DAILY PO 10/02/17 09:00 10/02/17 08:58 (Protonix) 40 mg DAILY PO 10/02/17 09:00 10/02/17 08:58 (Vitamin B1) 100 mg DAILY PO 10/02/17 09:00 10/02/17 08:58 (Folate) 1 mg DAILY PO 10/02/17 09:00 10/07/17 08:59 10/02/17 08:57 (Theragran M Tab) 1 tab DAILY PO 10/02/17 09:00 10/07/17 08:59 10/02/17 08:56 (Romazicon Inj) 0.2 mg Q1M PRN IV PUSH 10/01/17 21:00 (Ativan) 1 mg Q4H PRN PO 10/01/17 21:00 (Ativan Inj) 1 mg Q4H PRN IV PUSH 10/01/17 21:00 (Ativan) 2 mg Q2H PRN PO 10/01/17 21:00 (Ativan Inj) 2 mg Q2H PRN IV PUSH 10/01/17 21:00 (Ativan Inj) 2 mg Q1H PRN IV PUSH 10/01/17 21:00 (Ativan Inj) 2 mg Q15M PRN IV PUSH 10/01/17 21:00 (Haldol Inj) 2 mg Q15M PRN IM 10/01/17 21:00 Albumin Human 50 ml @ 60 mls/hr Q12H IV 10/02/17 12:00 Sodium Chloride 1,000 ml @ 84 mls/hr [id number] IV 10/02/17 11:00 Family History PAST FAMILY HISTORY: Reviewed. No h/o DM or CAD Social History PAST SOCIAL HISTORY: Positive for alcohol abuse, previously 18 beers per day, now 3-4 beers per day. Smokes 1/2ppd. Negative for drugs. (Edgardo Palomino) Review of Systems Constitutional: DENIES: Weight loss Endocrine: DENIES: Polydipsia Eyes: DENIES: Double Vision Ears, nose, mouth, throat: DENIES: Hoarseness Respiratory: DENIES: Shortness of breath Cardiovascular: COMPLAINS OF: Lower Extremity Edema Gastrointestinal: COMPLAINS OF: Swelling of Abdomen, DENIES: Abdominal pain, Black stools, Bloody stools, Constipation, Diarrhea, Nausea, Vomiting, Difficulty Swallowing, Anorexia, Odynophagia, Heartburn, Hematemesis Genitourinary: DENIES: Hematuria Musculoskeletal: DENIES: Neck pain Integumentary: DENIES: Jaundice Immunologic/allergic: DENIES: Eczema Neurologic: DENIES: Abnormal gait Psychiatric: DENIES: Anxiety (Edgardo Palomino) GI Exam Vitals I&O Vital Signs Date Time Temp Pulse Resp B/P (MAP) Pulse Ox O2 Delivery O2 Flow Rate FiO2 10/02/17 12:00 97.8 85 17 93/55 (68) 93 10/02/17 08:00 97.8 87 17 119/64 (82) 93 10/02/17 04:15 97.9 78 17 107/64 (78) 93 10/02/17 04:00 80 10/02/17 00:15 97.8 74 18 125/58 (80) 94 10/01/17 20:45 97.5 78 18 120/76 (91) 95 10/01/17 20:23 10/01/17 18:42 76 17 135/87 (103) 98 Room Air 10/01/17 18:42 85 17 98 10/01/17 18:00 97.6 80 18 117/67 (84) 99 I/O 10/01/17 10/01/17 10/01/17 10/02/17 10/02/17 10/02/17 06:59 14:59 22:59 06:59 14:59 22:59 Intake Total 500 ml 360 ml Balance 500 ml 360 ml Intake Oral 360 ml IV Total 500 ml # Voids 2 # Bowel Movements 0 Laboratory Test 10/01/17 19:00 10/02/17 00:43 10/02/17 06:02 Ammonia 17 MCMOL/L Sodium Level 121 MEQ/L 123 MEQ/L White Blood Count 5.9 TH/MM3 Red Blood Count 3.96 MIL/MM3 Hemoglobin 13.3 GM/DL Hematocrit 37.5 % Mean Corpuscular Volume 94.7 FL Mean Corpuscular Hemoglobin 33.6 PG Mean Corpuscular Hemoglobin Concent 35.5 % Red Cell Distribution Width 13.2 % Platelet Count 163 TH/MM3 Mean Platelet Volume 7.4 FL Neutrophils (%) (Auto) 62.7 % Lymphocytes (%) (Auto) 25.4 % Monocytes (%) (Auto) 10.4 % Eosinophils (%) (Auto) 0.8 % Basophils (%) (Auto) 0.7 % Neutrophils # (Auto) 3.7 TH/MM3 Lymphocytes # (Auto) 1.5 TH/MM3 Monocytes # (Auto) 0.6 TH/MM3 Eosinophils # (Auto) 0.0 TH/MM3 Basophils # (Auto) 0.0 TH/MM3 CBC Comment DIFF FINAL Differential Comment Prothrombin Time 12.2 SEC Prothromb Time International Ratio 1.2 RATIO Activated Partial Thromboplast Time 31.7 SEC Blood Urea Nitrogen 6 MG/DL Creatinine 0.87 MG/DL Random Glucose 71 MG/DL Total Protein 7.2 GM/DL Albumin 2.7 GM/DL Calcium Level 8.9 MG/DL Alkaline Phosphatase 129 U/L Aspartate Amino Transf (AST/SGOT) 15 U/L Alanine Aminotransferase (ALT/SGPT) 9 U/L Total Bilirubin 1.2 MG/DL Potassium Level 4.0 MEQ/L Chloride Level 88 MEQ/L Carbon Dioxide Level 26.5 MEQ/L Anion Gap 9 MEQ/L Estimat Glomerular Filtration Rate 90 ML/MIN Physical Examination HEENT: normocephalic; atraumatic; no jaundice. CHEST: Chest is clear to auscultation and percussion. CARDIAC: Regular rate and rhythm with no murmur gallop or rubs. ABDOMEN: firm, distended, nontender; hepatosplenomegaly; bowel sounds are present in all four quadrants. EXTREMITIES: No clubbing, cyanosis, pedal edema. SKIN: Normal; no rash; no jaundice. 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 (Edgardo Palomino) Assessment and Plan Plan - Alcoholic Cirrhosis- cont to drink, used to drink 18 beer a day, now couple a day, was referred by Dr. Jennings for severe hyponatremia 119 and to have paracentesis, he missed his scheduled appt. as an OP. Currently started on Lasix to 40mg qd , Aldactone to 100mg qd, and Rifaximin 550mg bid - Ascites refractory to diuretics- last paracentesis done in May, paracentesis ordered, this is pending Pt on Plavix at home, will probably need to be off of this for 5 days - Hyponatremia- Na 119 OP labs, today this 123 - Encephalopathy- Improved Acute on Chronic, due to ESLD. Ammonia 17. He is on Rifaximin. - Alcohol Abuse- Continues to drink 3-4 beers, previously 18 beers/day. DTs Precautions per attending, counselled on cessation Plan: - Low salt diet - Await paracentesis - Cont. Lasix, Aldactone - Cont. Xifaxan - monitor labs - Alcohol cessation - Patient seen and examined by Dr. Brooks and myself and this note is written on his behalf. (Edgardo Palomino) Physician Comments Seen and examined with PAINT TESTER, admitted for ascites and hyponatremia. Await paracentesis. Sodium improving. (Bret Brooks MD) Edgardo Palomino Oct 02, 2017 13:03 Bret Brooks MD Oct 02, 2017 17:14
[2017-10-02] MEDS: ALBUMIN 25% INJ 50 ML IV SCH (13:22)
[2017-10-02] MEDS: SODIUM CHLOR 0.9% 1000 ML INJ 1,000 ML IV SCH ×2 (13:22→21:23)
--- NOTE | 2017-10-02 18:42 | EKG ---
Date Performed: 10/01/2017 Time Performed: 18:58:31 PTAGE: 57 years EKG: Sinus rhythm LEFT BUNDLE BRANCH BLOCK Since the previous tracing, no significant change noted ABNORMAL ECG NO PREVIOUS TRACING DOCTOR: Napoleon Kennedy Interpretating Date/Time 10/02/2017 18:41:15
[2017-10-03] MEDS: ALBUMIN 25% INJ 50 ML IV SCH ×2 (00:50→15:39)
[2017-10-03 04:30] VITALS: BP 102/62; PULSE 74; RESP 18; TEMP 97.6; O2SAT 92
[2017-10-03 08:00] VITALS: BP 108/68; PULSE 92; RESP 17; TEMP 97.8; O2SAT 93
[2017-10-03] MEDS: SPIRONOLACTONE 100 MG TAB PO SCH (09:00)
[2017-10-03] MEDS: SODIUM CHLORIDE 0.9% FLUSH 10 ML FLUSH IV FLUSH SCH ×2 (09:00→21:00)
[2017-10-03] MEDS: METOPROLOL SUCCINATE 50 MG EXTENDED RELEASE TAB PO SCH (10:25)
[2017-10-03] MEDS: RIFAXIMIN 550 MG TAB PO SCH ×2 (10:25→23:26)
[2017-10-03] MEDS: MULTIVITAMINS/MINERALS THERAPEUTIC TAB PO SCH (10:25)
[2017-10-03] MEDS: PANTOPRAZOLE SOD 40 MG DELAYED RELEASE TAB PO SCH (10:25)
[2017-10-03] MEDS: DOCUSATE SODIUM 50 MG/SENNA 8.6 MG TAB PO SCH ×2 (10:26→21:00)
[2017-10-03] MEDS: THIAMINE HCL 100 MG TAB PO SCH (10:26)
[2017-10-03] MEDS: FOLIC ACID 1 MG TAB PO SCH (10:26)
[2017-10-03] MEDS: FUROSEMIDE 40 MG TAB PO SCH (10:27)
[2017-10-03] MEDS: clonazePAM 1 MG TAB PO SCH ×2 (10:30→23:27)
[2017-10-03] MEDS: SODIUM CHLOR 0.9% 1000 ML INJ 1,000 ML IV SCH ×2 (10:50→15:40)
[2017-10-03 12:13] LABS: BICARBONATE 27.2 MEQ/L (21.0-32.0); CALCIUM 8.8 MG/DL (8.5-10.1); CREATININE 0.77 MG/DL (0.60-1.30); MAGNESIUM 1.6 MG/DL (1.5-2.5); PHOSPHORUS 2.8 MG/DL (2.5-4.9)
[2017-10-03 12:24] VITALS: BP 95/67; PULSE 76; RESP 17; TEMP 97.8; O2SAT 93
--- NOTE | 2017-10-03 14:53 | HHI.PR ---
Subjective Remarks This is a 57-year-old male with a PMH of Anxiety, HTN, Alcohol Abuse, Cirrhosis , Hepatic Encephalopathy, ESLD and Tobacco Abuse who was referred to the ER by his Pl Sql Developer, Dr. Jennings, for admission due to severe hyponatremia and paracentesis. Pt unable to provide much history due to confusion and underlying encephalopathy, history obtained from records and from at bedside. states pt scheduled for Paracentesis on 09/20/17, however they missed the appointment due to misunderstanding regarding the date. Was seen in office today by Dr. Jennings, had labs done showing Na 119 and referred to ER for admission. Pt denies any complaints at this time. Does admit to drinking, 3-4 beers per day. On arrival , BP 117/67, HR 80, O2 sat 99% RA, Afebrile. CBC at baseline. Na 119. LFTs stable in comparison to previous. Ammonia 17. INR 1.2. S/p IVF in ER 10/02: Seen in his bedroom, awaiting for GI specialist consult, stable continue management for Hyponatremia discontinued Sodium chloride and started on IV fluids also started on Albumin. as per Interventional Radiology not able to perform Paracentesis due to that the patient was on Plavix will need to be off Plavix for five days. 10/03: Stable in his bedroom, Improving Sodium to 130, seen by GI specialist Doctor Todd, to continue Low salt diet, await for paracentesis, continue Lasix and Aldactone, alcohol cessation, no nausea, vomit or diarrhea. seen in his bedroom with Nurse Analisa Objective Vital Signs Date Time Temp Pulse Resp B/P (MAP) Pulse Ox O2 Delivery O2 Flow Rate FiO2 10/03/17 12:24 97.8 76 17 95/67 (76) 93 10/03/17 08:00 97.8 92 17 108/68 (81) 93 10/03/17 04:30 97.6 74 18 102/62 (75) 92 10/02/17 23:30 97.4 80 18 99/63 (75) 93 10/02/17 19:40 97.9 81 17 102/63 (76) 92 10/02/17 17:13 95 I/O 10/02/17 10/02/17 10/02/17 10/03/17 10/03/1710/03/18 07:00 15:00 23:00 07:00 15:00 23:00 Intake Total 360 ml 650 ml 50 ml 870 ml Balance 360 ml 650 ml 50 ml 870 ml Intake Oral 360 ml 650 ml 420 ml IV Total 50 ml 450 ml # Voids 2 5 2 # Bowel Movements 0 0 0 Result Diagram: 10/02/17 0602 10/03/17 1039 Imaging No new Imaging studies. Procedures None Other Results Laboratory Tests Test 10/01/17 19:00 10/02/17 06:02 10/03/17 10:39 Ammonia 17 MCMOL/L White Blood Count 5.9 TH/MM3 Red Blood Count 3.96 MIL/MM3 Hemoglobin 13.3 GM/DL Hematocrit 37.5 % Mean Corpuscular Volume 94.7 FL Mean Corpuscular Hemoglobin 33.6 PG Mean Corpuscular Hemoglobin Concent 35.5 % Red Cell Distribution Width 13.2 % Platelet Count 163 TH/MM3 Mean Platelet Volume 7.4 FL Neutrophils (%) (Auto) 62.7 % Lymphocytes (%) (Auto) 25.4 % Monocytes (%) (Auto) 10.4 % Eosinophils (%) (Auto) 0.8 % Basophils (%) (Auto) 0.7 % Neutrophils # (Auto) 3.7 TH/MM3 Lymphocytes # (Auto) 1.5 TH/MM3 Monocytes # (Auto) 0.6 TH/MM3 Eosinophils # (Auto) 0.0 TH/MM3 Basophils # (Auto) 0.0 TH/MM3 CBC Comment DIFF FINAL Differential Comment Prothrombin Time 12.2 SEC Prothromb Time International Ratio 1.2 RATIO Activated Partial Thromboplast Time 31.7 SEC Blood Urea Nitrogen 6 MG/DL 6 MG/DL Creatinine 0.87 MG/DL 0.77 MG/DL Random Glucose 71 MG/DL 111 MG/DL Total Protein 7.2 GM/DL Albumin 2.7 GM/DL Calcium Level 8.9 MG/DL 8.8 MG/DL Alkaline Phosphatase 129 U/L Aspartate Amino Transf (AST/SGOT) 15 U/L Alanine Aminotransferase (ALT/SGPT) 9 U/L Total Bilirubin 1.2 MG/DL Sodium Level 123 MEQ/L 130 MEQ/L Potassium Level 4.0 MEQ/L 3.6 MEQ/L Chloride Level 88 MEQ/L 93 MEQ/L Carbon Dioxide Level 26.5 MEQ/L 27.2 MEQ/L Phosphorus Level 2.8 MG/DL Magnesium Level 1.6 MG/DL Anion Gap 10 MEQ/L Estimat Glomerular Filtration Rate 104 ML/MIN Objective Remarks GENERAL: Middle-aged white male in no acute distress, awake and alert, intermittently confused. at bedside. HEENT: PERRLA, EOMI. No scleral icterus or conjunctival pallor. No lid lag or facial droop. CARDIOVASCULAR: Regular rate and rhythm. No obvious murmurs to auscultation. No chest tenderness to palpation. RESPIRATORY: No obvious rhonchi or wheezing. Clear to auscultation. Breath sounds equal bilaterally. GASTROINTESTINAL: Abdomen soft, non-tender, significantly distended abdomen, + ascites. BS normal. MUSCULOSKELETAL: Extremities without clubbing, cyanosis, or edema. No obvious deformities. NEUROLOGICAL: Awake, alert and oriented to person place, +confusion. No focal neurologic deficits. Moving both upper and lower extremities spontaneously. Medications and IVs Current Medications Medications (Trade) Dose Ordered Sig/Lorraine Route Start Time Stop Time Status Last Admin (Aldactone) 100 mg DAILY PO 10/02/17 09:00 (Lasix) 40 mg DAILY PO 10/02/17 09:00 10/03/17 10:27 (Xifaxan) 550 mg BID PO 10/01/17 21:00 10/03/17 10:25 (NS Flush) 2 ml UNSCH PRN IV FLUSH 10/01/17 19:45 (NS Flush) 2 ml BID IV FLUSH 10/01/17 21:00 10/02/17 08:56 (Morphine Inj) 2 mg Q3H PRN IV PUSH 10/01/17 19:45 (Roxicodone) 5 mg Q4H PRN PO 10/01/17 19:45 (Lizet-Colace) 1 tab BID PO 10/01/17 21:00 10/03/17 10:26 (Milk Of Magnesia Liq) 30 ml Q12H PRN PO 10/01/17 19:45 (Senokot) 17.2 mg Q12H PRN PO 10/01/17 19:45 (Dulcolax Supp) 10 mg DAILY PRN RECTAL 10/01/17 19:45 (KlonoPIN) 1 mg BID PO 10/01/17 21:00 10/03/17 10:30 (Lomotil Tab) 1 tab Q6H PRN PO 10/01/17 19:45 (Toprol Xl) 50 mg DAILY PO 10/02/17 09:00 10/03/17 10:25 (Protonix) 40 mg DAILY PO 10/02/17 09:00 10/03/17 10:25 (Vitamin B1) 100 mg DAILY PO 10/02/17 09:00 10/03/17 10:26 (Folate) 1 mg DAILY PO 10/02/17 09:00 10/07/17 08:59 10/03/17 10:26 (Theragran M Tab) 1 tab DAILY PO 10/02/17 09:00 10/07/17 08:59 10/03/17 10:25 (Romazicon Inj) 0.2 mg Q1M PRN IV PUSH 10/01/17 21:00 (Ativan) 1 mg Q4H PRN PO 10/01/17 21:00 (Ativan Inj) 1 mg Q4H PRN IV PUSH 10/01/17 21:00 (Ativan) 2 mg Q2H PRN PO 10/01/17 21:00 (Ativan Inj) 2 mg Q2H PRN IV PUSH 10/01/17 21:00 (Ativan Inj) 2 mg Q1H PRN IV PUSH 10/01/17 21:00 (Ativan Inj) 2 mg Q15M PRN IV PUSH 10/01/17 21:00 (Haldol Inj) 2 mg Q15M PRN IM 10/01/17 21:00 Albumin Human 50 ml @ 60 mls/hr Q12H IV 10/02/17 12:00 10/03/17 00:50 Sodium Chloride 1,000 ml @ 84 mls/hr [id number] IV 10/02/17 11:00 10/02/17 21:23 A/P Assessment and Plan (1) Hyponatremia ICD Code: E87.1 - Hypo-osmolality and hyponatremia (2) Cirrhosis ICD Code: K74.60 - Unspecified cirrhosis of liver (3) Ascites ICD Code: R18.8 - Other ascites Status: Acute (4) Encephalopathy ICD Code: G93.40 - Encephalopathy, unspecified (5) Thrombocytopenia ICD Code: D69.6 - Thrombocytopenia, unspecified (6) Alcohol abuse ICD Code: F10.10 - Alcohol abuse, uncomplicated (7) Tobacco abuse ICD Code: Z72.0 - Tobacco use 1. Hyponatremia: Na 119. Acute on chronic now 130 improving, continue present care IV fluids and Albumin. 2. Cirrhosis: Secondary to Alcohol Abuse. ESLD. Follows w/ Dr. Jennings as outpatient, at this time asked for Interventional Radiology continue diuretics, Rifaximin 550 mg BID, Aldactone 100 mg daily, and Lasix 40 mg daily. 3. Ascites: Recurrent. Missed scheduled Paracentesis on 09/20/17, + significant ascites. Consult IR for therapeutic Paracentesis in am. Hold ASA/ Plavix. INR 1.2. Check fluid for cell count, cytology and culture. Plavix on hold for five days for Paracentesis. 4. Encephalopathy: Acute on Chronic, due to ESLD. Ammonia 17. reports significant side effects from Lactulose, will start Rifaximin. Improved. 5. Thrombocytopenia: Chronic. 6. Alcohol Abuse: Continues to drink 3-4 beers, previously 18 beers/day. CIWA , Seizure Precautions, MVT/Thiamine/Folate 7. Tobacco Abuse: NicoDerm prn if needed. 8. electrolyte derangement replaced and following. DVT Prophylaxis: SCD/Teds Discharge Planning Once cleared by GI specialist. Hugo Zarate MD Oct 03, 2017 14:53
[2017-10-03] MEDS ORDERED: MAGNESIUM SULFATE 1 GM PREMIX 100 ML IV SCH ×2 (15:00→20:00)
[2017-10-03] MEDS ORDERED: POTASSIUM CHLORIDE 20 MEQ CONTROLLED RELEASE TAB PO ONE (15:00)
[2017-10-03 15:40] VITALS: BP 107/69; PULSE 72; RESP 17; TEMP 98.2; O2SAT 95
[2017-10-03 20:00] VITALS: BP 107/66; PULSE 74; RESP 16; TEMP 97.9; O2SAT 94
[2017-10-03] MEDS ORDERED: PROCHLORPERAZINE INJ 10 MG/2 ML VIAL IV PUSH PRN (22:15)
[2017-10-04] VITALS (9 sets, daily range): BP systolic 96–107; BP diastolic 53–71; PULSE 70–82; RESP 16–18; TEMP 97.5–98.2; O2SAT 94–96
[2017-10-04] MEDS: ALBUMIN 25% INJ 50 ML IV SCH ×2 (02:22→15:59)
[2017-10-04 08:27] LABS: BICARBONATE 24.6 MEQ/L (21.0-32.0); CALCIUM 8.5 MG/DL (8.5-10.1); CREATININE 0.71 MG/DL (0.60-1.30); MAGNESIUM 1.9 MG/DL (1.5-2.5)
--- NOTE | 2017-10-04 08:56 | HHI.PR ---
Subjective Remarks Pt seen and examined this morning. Reports he is feeling well just "bored." Denies abdominal pain, nausea, vomiting, diarrhea, fever, chills, chest pain, or shortness of breath. Has not required any Ativan for CIWA and states he does not feel like he is having any withdrawal symptoms. He would like to have his paracentesis done as an outpatient if possible. Objective Vital Signs Date Time Temp Pulse Resp B/P (MAP) Pulse Ox O2 Delivery O2 Flow Rate FiO2 10/04/17 07:35 Room Air 10/04/17 07:26 98.0 80 18 96/53 (67) 95 10/04/17 04:00 97.5 76 16 98/59 (72) 94 10/04/17 00:00 98.2 73 16 104/64 (77) 95 10/03/17 20:00 97.9 74 16 107/66 (80) 94 10/03/17 15:40 98.2 72 17 107/69 (82) 95 10/03/17 12:24 97.8 76 17 95/67 (76) 93 I/O 10/03/17 10/03/17 10/03/17 10/04/17 10/04/17 10/04/17 07:00 15:00 23:00 07:00 15:00 23:00 Intake Total 870 ml 480 ml 150 ml 330 ml Balance 870 ml 480 ml 150 ml 330 ml Intake Oral 420 ml 480 ml 330 ml IV Total 450 ml 150 ml # Voids 2 4 2 # Bowel Movements 0 2 1 Result Diagram: 10/02/17 0602 10/04/17 0632 Objective Remarks GENERAL: WN, WD male laying comfortably in bed in NAD. SKIN: Warm and dry. HEENT: Pupils equal and round. MMM. NECK: Supple no tender LAD or JVD. HEART: RRR no m/r/g. LUNGS: Bibasilar crackles otherwise clear without wheezing and pt breathing comfortably on room air. ABDOMEN: +BS, distended with + ascites and fluid shift. Nontender. EXTREMITIES: Trace LE edema. Brawny skin discoloration of LE. NEURO: Awake and alert. PSYCH: Appropriate mood and affect. A/P Problem List: (1) Encephalopathy ICD Code: G93.40 - Encephalopathy, unspecified Status: Acute (2) Ascites ICD Code: R18.8 - Other ascites Status: Acute (3) Hyponatremia ICD Code: E87.1 - Hypo-osmolality and hyponatremia Status: Acute (4) Alcohol abuse ICD Code: F10.10 - Alcohol abuse, uncomplicated Status: Chronic (5) Cirrhosis ICD Code: K74.60 - Unspecified cirrhosis of liver Status: Chronic (6) Tobacco abuse ICD Code: Z72.0 - Tobacco use Status: Chronic Assessment and Plan 57 year old male with a history of EtOH abuse, cirrhosis, and chronic ascites admitted on 10/01 for hyponatremia seen on outpatient labs. 1. Hyponatremia - Sodium 128 this morning, improved from 121 on admission - Continue with NS 2. Ascites/cirrhosis - Appreciate GI assistance - Planning for paracentesis from patient has to be off Plavix x 5 days (can't be done until 10/06) - Continue albumin, Lasix, Spironolactone, and Rifaximin - Will see if paracentesis can be done as an outpatient - Avoid nephrotoxic agents - Continue Rifaximin - Ammonia normal 3. EtOH abuse - CIWA protocol but no clinical signs of withdrawal - Rally pack - Counseled on alcohol cessation 4. Tobacco abuse - Counseled on cessation - Nicotine patch DVT prophylaxis: SCDs/Teds given hepatic coagulopathy Discharge Planning If GI agrees and patient can be scheduled for outpatient paracentesis, he can be discharged today Problem Qualifiers (1) Ascites: Qualified Codes: K70.31 - Alcoholic cirrhosis of liver with ascites Arianna Moon MD Oct 04, 2017 08:56
[2017-10-04] MEDS ORDERED: POTASSIUM CHLORIDE 20 MEQ CONTROLLED RELEASE TAB PO ONE (09:00)
[2017-10-04] MEDS: SPIRONOLACTONE 100 MG TAB PO SCH (09:00)
[2017-10-04] MEDS: FUROSEMIDE 40 MG TAB PO SCH (09:00)
[2017-10-04] MEDS: MULTIVITAMINS/MINERALS THERAPEUTIC TAB PO SCH (10:27)
[2017-10-04] MEDS: FOLIC ACID 1 MG TAB PO SCH (10:27)
[2017-10-04] MEDS: PANTOPRAZOLE SOD 40 MG DELAYED RELEASE TAB PO SCH (10:27)
[2017-10-04] MEDS: RIFAXIMIN 550 MG TAB PO SCH ×2 (10:27→20:05)
[2017-10-04] MEDS: clonazePAM 1 MG TAB PO SCH ×2 (10:27→20:05)
[2017-10-04] MEDS: THIAMINE HCL 100 MG TAB PO SCH (10:27)
[2017-10-04] MEDS: METOPROLOL SUCCINATE 50 MG EXTENDED RELEASE TAB PO SCH (10:28)
[2017-10-04] MEDS: DOCUSATE SODIUM 50 MG/SENNA 8.6 MG TAB PO SCH ×2 (10:28→20:05)
[2017-10-04] MEDS: SODIUM CHLORIDE 0.9% FLUSH 10 ML FLUSH IV FLUSH SCH ×2 (10:38→20:05)
[2017-10-04] MEDS: SODIUM CHLOR 0.9% 1000 ML INJ 1,000 ML IV SCH ×2 (10:40→22:52)
--- NOTE | 2017-10-04 10:50 | HHI.GIFU ---
Subjective Remarks Pt resting in bed. Continued abd distention. Denies significant discomfort. NO other GI complaints. (Argenis Atkins) Objective Vitals I&O Vital Signs Date Time Temp Pulse Resp B/P (MAP) Pulse Ox O2 Delivery O2 Flow Rate FiO2 10/04/17 09:57 82 10/04/17 07:35 Room Air 10/04/17 07:26 98.0 80 18 96/53 (67) 95 10/04/17 04:00 97.5 76 16 98/59 (72) 94 10/04/17 00:00 98.2 73 16 104/64 (77) 95 10/03/17 20:00 97.9 74 16 107/66 (80) 94 10/03/17 15:40 98.2 72 17 107/69 (82) 95 10/03/17 12:24 97.8 76 17 95/67 (76) 93 I/O 10/03/17 10/03/17 10/03/17 10/04/17 10/04/17 10/04/17 07:00 15:00 23:00 07:00 15:00 23:00 Intake Total 870 ml 480 ml 150 ml 330 ml Balance 870 ml 480 ml 150 ml 330 ml Intake Oral 420 ml 480 ml 330 ml IV Total 450 ml 150 ml # Voids 2 4 2 # Bowel Movements 0 2 1 Laboratory Laboratory Tests Test 10/04/17 06:32 Blood Urea Nitrogen 4 Creatinine 0.71 Random Glucose 76 Calcium Level 8.5 Magnesium Level 1.9 Sodium Level 128 Potassium Level 3.2 Chloride Level 93 Carbon Dioxide Level 24.6 Anion Gap 10 Estimat Glomerular Filtration Rate 114 Physical Exam HEENT: PERRL; normocephalic; atraumatic; no jaundice. CHEST: CTA CARDIAC: RRR ABDOMEN:distended with ascites semifirm, nontender; bowel sounds are present in all four quadrants. EXTREMITIES: No clubbing, cyanosis, or edema. SKIN: Normal; no rash; no jaundice. 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 (Argenis Atkins) Assessment and Plan Plan - Alcoholic Cirrhosis- cont to drink, used to drink 18 beer a day, now couple a day, was referred by Dr. Jennings for severe hyponatremia 119 and to have paracentesis, he missed his scheduled appt. as an OP. Currently started on Lasix to 40mg qd , Aldactone to 100mg qd, and Rifaximin 550mg bid - Ascites refractory to diuretics- last paracentesis done in May, paracentesis ordered, this is pending Pt on Plavix at home, will probably need to be off of this for 5 days - Hyponatremia- Na 119 OP labs, today this 123 - Encephalopathy- Improved Acute on Chronic, due to ESLD. Ammonia 17. He is on Rifaximin. - Alcohol Abuse- Continues to drink 3-4 beers, previously 18 beers/day. DTs Precautions per attending, counselled on cessation 10/04/17 paracentesis pending, needs off plavix 5 days which would make tomorrow the day for paracentesis. no complaints other than distention. Plan: - Low salt diet - Await paracentesis - tomorrow? - Cont diuretics - Cont. Xifaxan - monitor labs - Alcohol cessation - GI will sign off. please reconsult if needed. pt seen by myself and Dr Malcolm and this note is on his behalf (Argenis Atkins) Plan Patient was seen and examined, agree with above-noted, patient overall doing okay, recommended to stop alcohol, we will follow up as needed, he can follow up with Dr. HOYOS in 6 as an outpatient once discharged (Urbano Malcolm MD) Argenis Atkins Oct 04, 2017 10:50 Urbano Malcolm MD Oct 04, 2017 18:52
[2017-10-05] VITALS (9 sets, daily range): BP systolic 97–105; BP diastolic 54–64; PULSE 69–80; RESP 16–18; TEMP 97.7–98.3; O2SAT 95–97
[2017-10-05] MEDS: ALBUMIN 25% INJ 50 ML IV SCH ×2 (01:46→11:59)
--- NOTE | 2017-10-05 08:48 | HHI.PR ---
Subjective Remarks No overnight events, sodium is still low. No abdominal pain, distended abdomen. Objective Vitals Vital Signs Date Time Temp Pulse Resp B/P (MAP) Pulse Ox O2 Delivery O2 Flow Rate FiO2 10/05/17 07:44 97.9 71 18 102/59 (73) 97 10/05/17 07:17 Room Air 10/05/17 04:00 70 10/05/17 03:15 98.3 71 18 100/64 (76) 97 10/05/17 00:00 72 10/04/17 23:20 98.0 75 17 97/65 (76) 96 10/04/17 20:00 70 10/04/17 19:55 98.1 75 17 107/71 (83) 96 10/04/17 15:40 98.0 76 18 100/63 (75) 94 10/04/17 11:41 98.1 72 18 99/56 (70) 96 10/04/17 09:57 82 I/O 10/04/17 10/04/17 10/04/17 10/05/17 10/05/17 10/05/17 07:00 15:00 23:00 07:00 15:00 23:00 Intake Total 330 ml 850 ml 120 ml Balance 330 ml 850 ml 120 ml Intake Oral 330 ml 850 ml 120 ml # Voids 2 2 5 # Bowel Movements 1 0 0 Result Diagram: 10/02/17 0602 10/04/17 0632 Objective Remarks GENERAL: WN, WD male laying comfortably in bed in NAD. HEART: RRR no m/r/g. LUNGS: Occasional crackles, on room air. ABDOMEN: +BS, distended with + ascites and fluid shift. Nontender. EXTREMITIES: Positive for lower extremity edema. Brawny skin discoloration of LE. NEURO: Awake and alert. PSYCH: Appropriate mood and affect. A/P Problem List: (1) Hyponatremia ICD Code: E87.1 - Hypo-osmolality and hyponatremia Status: Acute (2) Cirrhosis ICD Code: K74.60 - Unspecified cirrhosis of liver Status: Chronic (3) Ascites ICD Code: R18.8 - Other ascites Status: Acute (4) Encephalopathy ICD Code: G93.40 - Encephalopathy, unspecified Status: Acute (5) Thrombocytopenia ICD Code: D69.6 - Thrombocytopenia, unspecified (6) Alcohol abuse ICD Code: F10.10 - Alcohol abuse, uncomplicated Status: Chronic (7) Tobacco abuse ICD Code: Z72.0 - Tobacco use Status: Chronic Assessment and Plan 57 year old male with a history of EtOH abuse, cirrhosis, and chronic ascites admitted on 10/01 for hyponatremia seen on outpatient labs. 1. Hyponatremia - Sodium 128 this morning, improved from 121 on admission, stop normal saline, will give 1 more dose of Lasix. Recheck BMP in the morning. 2. Ascites/cirrhosis - Appreciate GI assistance - Planning for paracentesis from patient has to be off Plavix x 5 days, for paracentesis tomorrow. One more dose of Lasix today. - Continue albumin, Lasix, Spironolactone, and Rifaximin - Continue Rifaximin - Ammonia normal 3. EtOH abuse - CIWA protocol but no clinical signs of withdrawal - Rally pack - Counseled on alcohol cessation 4. Tobacco abuse - Counseled on cessation - Nicotine patch DVT prophylaxis: SCDs/Teds given hepatic coagulopathy Discharge Planning Since patient has poor compliance, will do paracentesis tomorrow and discharge. GI has signed off. Problem Qualifiers (1) Ascites: Qualified Codes: K70.31 - Alcoholic cirrhosis of liver with ascites Rosaline Hartmann MD Oct 05, 2017 08:48
[2017-10-05] MEDS: DOCUSATE SODIUM 50 MG/SENNA 8.6 MG TAB PO SCH ×2 (09:00→21:00)
--- NOTE | 2017-10-05 09:32 | HHI.FF ---
Face to Face Verification Diagnosis: (1) Ascites (2) Hyponatremia Physical Therapy Order: Evaluate and Treat Home Health Nursing Order: Medical education Signs/symptoms of disease process I have seen patient Tanner Archuleta on 10/05/17. My clinical findings support the need for the requested home health care services because: Ltd mobility - disease progression I certify that my clinical findings support that this patient is homebound because: Unsteady gait/balance Rosaline Hartmann MD Oct 05, 2017 09:32
[2017-10-05] MEDS: SPIRONOLACTONE 100 MG TAB PO SCH (09:50)
[2017-10-05] MEDS: PANTOPRAZOLE SOD 40 MG DELAYED RELEASE TAB PO SCH (09:50)
[2017-10-05] MEDS: FUROSEMIDE 40 MG TAB PO SCH (09:51)
[2017-10-05] MEDS: MULTIVITAMINS/MINERALS THERAPEUTIC TAB PO SCH (09:51)
[2017-10-05] MEDS: RIFAXIMIN 550 MG TAB PO SCH ×2 (09:51→21:16)
[2017-10-05] MEDS: SODIUM CHLORIDE 0.9% FLUSH 10 ML FLUSH IV FLUSH SCH ×2 (09:51→21:16)
[2017-10-05] MEDS: METOPROLOL SUCCINATE 50 MG EXTENDED RELEASE TAB PO SCH (09:51)
[2017-10-05] MEDS: FOLIC ACID 1 MG TAB PO SCH (09:51)
[2017-10-05] MEDS: clonazePAM 1 MG TAB PO SCH ×2 (09:51→21:16)
[2017-10-05] MEDS: THIAMINE HCL 100 MG TAB PO SCH (09:51)
[2017-10-05] MEDS ORDERED: FUROSEMIDE 40 MG/4 ML VIAL IV PUSH ONE (15:00)
[2017-10-05] MEDS ORDERED: POTASSIUM CHLORIDE 10 MEQ CONTROLLED RELEASE TAB PO ONE (22:00)
[2017-10-06] VITALS (10 sets, daily range): BP systolic 101–116; BP diastolic 57–69; PULSE 70–77; RESP 16–18; TEMP 97.3–98.1; O2SAT 94–98
[2017-10-06] MEDS: ALBUMIN 25% INJ 50 ML IV SCH ×3 (00:50→23:44)
[2017-10-06] MEDS: DOCUSATE SODIUM 50 MG/SENNA 8.6 MG TAB PO SCH ×2 (09:00→20:45)
[2017-10-06] MEDS: FOLIC ACID 1 MG TAB PO SCH (09:00)
[2017-10-06] MEDS: RIFAXIMIN 550 MG TAB PO SCH ×2 (09:00→20:44)
[2017-10-06] MEDS: MULTIVITAMINS/MINERALS THERAPEUTIC TAB PO SCH (09:00)
[2017-10-06] MEDS: THIAMINE HCL 100 MG TAB PO SCH (09:00)
[2017-10-06] MEDS: SODIUM CHLORIDE 0.9% FLUSH 10 ML FLUSH IV FLUSH SCH ×2 (09:00→20:46)
[2017-10-06 09:40] LABS: BICARBONATE 24.8 MEQ/L (21.0-32.0); CALCIUM 8.9 MG/DL (8.5-10.1); CREATININE 0.81 MG/DL (0.60-1.30)
--- NOTE | 2017-10-06 14:56 | HHI.PR ---
Subjective Remarks Feels tired. Says belly is more distended however no pain. No fever or chills. Has decreased appetite not eating much. No nausea or vomiting no diarrhea or constipation. Plan for paracentesis today Objective Vitals Vital Signs Date Time Temp Pulse Resp B/P (MAP) Pulse Ox O2 Delivery O2 Flow Rate FiO2 10/06/17 12:00 97.8 77 16 103/57 (72) 94 10/06/17 08:00 98.1 72 16 105/58 (74) 94 10/06/17 05:08 97.8 73 16 101/58 (72) 96 10/06/17 04:00 71 10/06/17 00:22 97.4 74 17 116/69 (85) 96 10/06/17 00:00 73 10/05/17 21:24 Room Air 10/05/17 20:00 80 10/05/17 19:20 98.1 76 16 105/58 (74) 95 10/05/17 15:50 73 10/05/17 15:37 97.7 71 18 101/56 (71) 96 I/O 10/05/17 10/05/17 10/05/17 10/06/17 10/06/17 10/06/17 07:00 15:00 23:00 07:00 15:00 23:00 Intake Total 170 ml 920 ml 480 ml Balance 170 ml 920 ml 480 ml Intake Oral 120 ml 920 ml 480 ml IV Total 50 ml # Voids 5 3 2 # Bowel Movements 0 0 Result Diagram: 10/02/17 0602 10/06/17 0904 Objective Remarks GENERAL: WN, WD male laying comfortably in bed in [facility]. HEART: RRR, no m/r/g. LUNGS: Occasional crackles, on room air. ABDOMEN: +BS x4q, distended with + ascites and fluid shift. Nontender. EXTREMITIES: Positive for lower extremity edema. Brawny skin discoloration of LE. NEURO: Awake and alert. PSYCH: Appropriate mood and affect. A/P Problem List: (1) Hyponatremia ICD Code: E87.1 - Hypo-osmolality and hyponatremia Status: Acute (2) Cirrhosis ICD Code: K74.60 - Unspecified cirrhosis of liver Status: Chronic (3) Ascites ICD Code: R18.8 - Other ascites Status: Acute (4) Encephalopathy ICD Code: G93.40 - Encephalopathy, unspecified Status: Acute (5) Thrombocytopenia ICD Code: D69.6 - Thrombocytopenia, unspecified (6) Alcohol abuse ICD Code: F10.10 - Alcohol abuse, uncomplicated Status: Chronic (7) Tobacco abuse ICD Code: Z72.0 - Tobacco use Status: Chronic Assessment and Plan 57 year old male with a history of EtOH abuse, cirrhosis, and chronic ascites admitted on 10/01 for hyponatremia seen on outpatient labs. Hyponatremia Sodium 132 this morning, improved from 121 on admission, stop normal saline. Recheck BMP in the morning. Ascites/cirrhosis Planning for paracentesis from patient has to be off Plavix x 5 days, for paracentesis tomorrow. One more dose of Lasix today. Continue albumin, Lasix, Spironolactone, and Rifaximin Continue Rifaximin Ammonia normal EtOH abuse CIWA protocol but no clinical signs of withdrawal Rally pack Counseled on alcohol cessation Tobacco abuse Counseled on cessation Nicotine patch DVT prophylaxis: SCDs/Teds given hepatic coagulopathy Discharge Planning Since patient has poor compliance, plan for paracentesis. GI has signed off. Discharge patient after paracentesis. Problem Qualifiers (1) Ascites: Qualified Codes: K70.31 - Alcoholic cirrhosis of liver with ascites Sarah Pugh MD Oct 06, 2017 14:56
--- NOTE | 2017-10-06 15:00 | HHI.DS ---
Discharge Summary Admission Date Oct 01, 2017 at 19:34 Discharge Date: Oct 06, 2017 Admitting Diagnosis hyponatremia, hepatic encephalopathy (1) Hyponatremia ICD Code: E87.1 - Hypo-osmolality and hyponatremia Status: Acute (2) Cirrhosis ICD Code: K74.60 - Unspecified cirrhosis of liver Status: Chronic (3) Ascites ICD Code: R18.8 - Other ascites Status: Acute (4) Encephalopathy ICD Code: G93.40 - Encephalopathy, unspecified Status: Acute (5) Thrombocytopenia ICD Code: D69.6 - Thrombocytopenia, unspecified (6) Alcohol abuse ICD Code: F10.10 - Alcohol abuse, uncomplicated Status: Chronic (7) Tobacco abuse ICD Code: Z72.0 - Tobacco use Status: Chronic Procedures paracentesis Brief History - From Admission This is a 57-year-old male with a PMH of Anxiety, HTN, Alcohol Abuse, Cirrhosis , Hepatic Encephalopathy, ESLD and Tobacco Abuse who was referred to the ER by his Vamp Presser, Dr. Jennings, for admission due to severe hyponatremia and paracentesis. Pt unable to provide much history due to confusion and underlying encephalopathy, history obtained from records and from at bedside. states pt scheduled for Paracentesis on 09/20/17, however they missed the appointment due to misunderstanding regarding the date. Was seen in office today by Dr. Jennings, had labs done showing Na 119 and referred to ER for admission. Pt denies any complaints at this time. Does admit to drinking, 3-4 beers per day. On arrival, BP 117/67, HR 80, O2 sat 99% RA, Afebrile. CBC at baseline. Na 119. LFTs stable in comparison to previous. Ammonia 17. INR 1.2. S/p IVF in ER CBC/BMP: 10/02/17 0602 10/06/17 0904 Significant Findings Laboratory Tests Test 10/04/17 06:32 10/06/17 09:04 Blood Urea Nitrogen 4 MG/DL (7-18) 5 MG/DL (7-18) Sodium Level 128 MEQ/L (136-145) 132 MEQ/L (136-145) Potassium Level 3.2 MEQ/L (3.5-5.1) Chloride Level 93 MEQ/L (98-107) 97 MEQ/L (98-107) PE at Discharge GENERAL: WN, WD male laying comfortably in bed in [facility]. HEART: RRR, no m/r/g. LUNGS: Occasional crackles, on room air. ABDOMEN: +BS x4q, distended with + ascites and fluid shift. Nontender. EXTREMITIES: Positive for lower extremity edema. Brawny skin discoloration of LE. NEURO: Awake and alert. PSYCH: Appropriate mood and affect. Hospital Course 57 year old male with a history of EtOH abuse, cirrhosis, and chronic ascites admitted on 10/01 for hyponatremia seen on outpatient labs. Hyponatremia Sodium 132 this morning, improved from 121 on admission, stop normal saline. Recheck BMP in the morning. Ascites/cirrhosis Planning for paracentesis from patient has to be off Plavix x 5 days, for paracentesis tomorrow. One more dose of Lasix today. Continue albumin, Lasix, Spironolactone, and Rifaximin Continue Rifaximin Ammonia normal EtOH abuse CIWA protocol but no clinical signs of withdrawal Rally pack Counseled on alcohol cessation Tobacco abuse Counseled on cessation Nicotine patch Noncompliance: Discussed at length , advice compliance with meds and follow up, abstinence from EtoH and tobacco use. DVT prophylaxis: SCDs/Teds given hepatic coagulopathy Improved. Na is better. Eating well. Paracentesis before DC. DC in stable condition to follow up as OP with PCP and consultants Pt Condition on Discharge: Stable Discharge Disposition: Discharge Home Discharge Time: > 30 minutes Discharge Instructions DIET: Follow Instructions for: Heart Healthy Diet Activities you can perform: Regular-No Restrictions Follow up Referrals: Gastroenterology - 1 Week PCP Follow-up - 2-3 Days Continued Medications: Amlodipine (Amlodipine) 10 Mg Tab 10 MG PO DAILY for Blood Pressure Management, #30 TAB 0 Refills Aspirin (Aspirin Low Dose) 81 Mg Chew 81 MG CHEW DAILY, TAB 0 Refills Cetirizine (Cetirizine) 10 Mg Chew 10 MG CHEW DAILY for Allergies, TAB 0 Refills Clonazepam (Clonazepam) 1 Mg Tab 1 MG PO BID, #60 TAB 0 Refills Clopidogrel (Plavix) 75 Mg Tab 75 MG PO DAILY for Blood Clot Prevention, #30 TAB 0 Refills Dextromethorphan-Guaifenesin (Mucinex DM) 30-600 Mg Tab 1 TAB PO BID PRN for CHEST CONGESTION AND/OR COUGH, TAB 0 Refills Dicyclomine (Dicyclomine) 10 Mg Cap 10 MG PO TID for Bowel Management, CAP 0 Refills Diphenhydramine HCl (Unisom) 50 Mg/30 Ml Liquid Diphenoxylate-Atropine (Lomotil) 2.5-0.025 Mg Tab 1 TAB PO Q6H PRN for DIARRHEA, TAB 0 Refills Fluticasone Nasal [place] (Fluticasone Nasal [place]) 50 Mcg/Act Naspr 100 MCG EACH NARE DAILY for Allergy Management, #1 BOTTLE 0 Refills 50 mcg/spray Furosemide (Furosemide) 20 Mg Tab 20 MG PO DAILY for ascites, #30 TAB Metoprolol Succinate ER 24 HR (Metoprolol Succinate ER 24 HR) 50 Mg Tab 50 MG PO DAILY, #30 TAB 0 Refills Pantoprazole (Pantoprazole) 40 Mg Tab 40 MG PO DAILY for Reflux, #30 TAB 0 Refills Simethicone (Simethicone) 180 Mg Cap 180 MG PO DAILY PRN for GAS RETENTION, CAP 0 Refills Sodium Chloride (Sodium Chloride) 1 Gram Tab 1 GM PO BID for Electrolyte Replacement, #60 TAB Spironolactone (Aldactone) 50 Mg Tab 50 MG PO DAILY, #30 TAB 0 Refills Thiamine HCl (Gnp Vitamin B-1) 100 Mg Tab 100 MG PO DAILY for Alcohol Detox, #30 TAB Sarah Pugh MD Oct 06, 2017 15:00
[2017-10-06] MEDS: SPIRONOLACTONE 100 MG TAB PO SCH (15:08)
[2017-10-06] MEDS: PANTOPRAZOLE SOD 40 MG DELAYED RELEASE TAB PO SCH (15:09)
[2017-10-06] MEDS: FUROSEMIDE 40 MG TAB PO SCH (15:09)
[2017-10-06] MEDS: METOPROLOL SUCCINATE 50 MG EXTENDED RELEASE TAB PO SCH (15:09)
[2017-10-06] MEDS: clonazePAM 1 MG TAB PO SCH ×2 (15:09→20:45)
[2017-10-06] MEDS: POTASSIUM CHLORIDE 20 MEQ CONTROLLED RELEASE TAB PO SCH ×2 (15:10→20:44)
[2017-10-07] VITALS (7 sets, daily range): BP systolic 99–122; BP diastolic 60–74; PULSE 65–74; RESP 16–18; TEMP 97.2–98.1; O2SAT 95–97
[2017-10-07 05:28] LABS: AUTOMATED NEUTROPHIL # 3.2 TH/MM3 (1.8-7.7); BASOPHIL % 0.8 % (0.0-2.0); EOSINOPHIL # 0.1 TH/MM3 (0-0.4); HEMATOCRIT 34.7 % (39.0-51.0); HEMOGLOBIN 12.2 GM/DL (13.0-17.0); INTERNATIONAL NORMALIZED RATIO 1.3 RATIO; LYMPH % 25.1 % (9.0-44.0); LYMPHOCYTE # 1.3 TH/MM3 (1.0-4.8); MEAN CELL VOLUME 95.2 FL (80.0-100.0); MEAN CORPUSCULAR HEMOGLOBIN 33.4 PG (27.0-34.0); MEAN CORPUSCULAR HGB CONC 35.1 % (32.0-36.0); MEAN PLATELET VOLUME 7.3 FL (7.0-11.0); MONO % 13.3 % (0.0-8.0); MONOCYTE # 0.7 TH/MM3 (0-0.9); NEUT % 59.8 % (16.0-70.0); PLATELET COUNT 148 TH/MM3 (150-450); RED BLOOD COUNT 3.65 MIL/MM3 (4.50-5.90); RED CELL DISTRIBUTION WIDTH 13.1 % (11.6-17.2); WHITE BLOOD COUNT 5.4 TH/MM3 (4.0-11.0)
[2017-10-07] MEDS: SPIRONOLACTONE 100 MG TAB PO SCH (08:04)
[2017-10-07] MEDS: THIAMINE HCL 100 MG TAB PO SCH (08:04)
[2017-10-07] MEDS: FUROSEMIDE 40 MG TAB PO SCH (08:05)
[2017-10-07] MEDS: PANTOPRAZOLE SOD 40 MG DELAYED RELEASE TAB PO SCH (08:05)
[2017-10-07] MEDS: METOPROLOL SUCCINATE 50 MG EXTENDED RELEASE TAB PO SCH (08:05)
[2017-10-07] MEDS: clonazePAM 1 MG TAB PO SCH (08:05)
[2017-10-07] MEDS: DOCUSATE SODIUM 50 MG/SENNA 8.6 MG TAB PO SCH (08:05)
[2017-10-07] MEDS: SODIUM CHLORIDE 0.9% FLUSH 10 ML FLUSH IV FLUSH SCH (08:06)
[2017-10-07] MEDS: POTASSIUM CHLORIDE 20 MEQ CONTROLLED RELEASE TAB PO SCH (08:06)
--- NOTE | 2017-10-07 08:07 | HHI.PR ---
Subjective Remarks No events overnight. No complaints. DC after paracentesis. Objective Vitals Vital Signs Date Time Temp Pulse Resp B/P (MAP) Pulse Ox O2 Delivery O2 Flow Rate FiO2 10/07/17 07:31 98.0 74 18 112/66 (81) 97 10/07/17 04:01 67 10/07/17 03:00 97.8 71 16 117/71 (86) 96 10/07/17 00:05 97.8 74 16 99/60 (73) 95 10/06/17 23:50 75 10/06/17 20:10 98.1 74 18 109/57 (74) 98 10/06/17 20:00 74 10/06/17 16:00 97.3 70 16 111/63 (79) 96 10/06/17 12:00 97.8 77 16 103/57 (72) 94 I/O 10/06/17 10/06/17 10/06/17 10/07/17 10/07/17 10/07/17 07:00 15:00 23:00 07:00 15:00 23:00 Intake Total 480 ml 0 ml 290 ml Balance 480 ml 0 ml 290 ml Intake Oral 480 ml 0 ml 240 ml IV Total 50 ml # Voids 2 1 2 # Bowel Movements 0 0 0 Result Diagram: 10/07/17 0400 10/06/17 0904 Imaging Last Impressions Cyst Biopsy Asp-Paracentesis US 10/07/17 0000 Signed Impressions: Service Date/Time: September 08:39 - CONCLUSION: Uncomplicated ultrasound guided paracentesis. Giorgio Armendariz MD Objective Remarks GENERAL: WN, WD male laying comfortably in bed in [facility]. HEART: RRR, no m/r/g. LUNGS: Occasional crackles, on room air. ABDOMEN: +BS x4q, distended with + ascites and fluid shift. Nontender. EXTREMITIES: Positive for lower extremity edema. Brawny skin discoloration of LE. NEURO: Awake and alert. PSYCH: Appropriate mood and affect. Procedures paracentesis A/P Problem List: (1) Hyponatremia ICD Code: E87.1 - Hypo-osmolality and hyponatremia Status: Acute (2) Cirrhosis ICD Code: K74.60 - Unspecified cirrhosis of liver Status: Chronic (3) Ascites ICD Code: R18.8 - Other ascites Status: Acute (4) Encephalopathy ICD Code: G93.40 - Encephalopathy, unspecified Status: Acute (5) Thrombocytopenia ICD Code: D69.6 - Thrombocytopenia, unspecified (6) Alcohol abuse ICD Code: F10.10 - Alcohol abuse, uncomplicated Status: Chronic (7) Tobacco abuse ICD Code: Z72.0 - Tobacco use Status: Chronic Assessment and Plan 57 year old male with a history of EtOH abuse, cirrhosis, and chronic ascites admitted on 10/01 for hyponatremia seen on outpatient labs. Hyponatremia Sodium 132 this morning, improved from 121 on admission, stop normal saline. Recheck BMP in the morning. Ascites/cirrhosis Planning for paracentesis from patient has to be off Plavix x 5 days, for paracentesis tomorrow. One more dose of Lasix today. Continue albumin, Lasix, Spironolactone, and Rifaximin Continue Rifaximin Ammonia normal EtOH abuse CIWA protocol but no clinical signs of withdrawal Rally pack Counseled on alcohol cessation Tobacco abuse Counseled on cessation Nicotine patch DVT prophylaxis: SCDs/Teds given hepatic coagulopathy Discharge Planning Since patient has poor compliance, plan for paracentesis. GI has signed off. Discharge patient after paracentesis. Problem Qualifiers (1) Ascites: Qualified Codes: K70.31 - Alcoholic cirrhosis of liver with ascites Sarah Pugh MD Oct 07, 2017 08:07
[2017-10-07] MEDS: RIFAXIMIN 550 MG TAB PO SCH (08:10)
[2017-10-07] MEDS ORDERED: LIDOCAINE HCL 1% 20 ML VIAL ONE (10:07)
[2017-10-07 11:17] LABS: PERITONEAL HISTIOCYTES 14 %; PERITONEAL LYMPHS 63 %; PERITONEAL MESOTHELIAL 14 %; PERITONEAL POLYS(SEGS) 9 %; PERITONEAL RBC 114 /MM3 (0-0)
[2017-10-07] MEDS: ALBUMIN 25% INJ 50 ML IV SCH (12:00)
[2017-10-07] MEDS: ALBUMIN 25% INJ 0 ML IV ONE ×2 (12:42→13:02)
--- NOTE | 2017-10-07 13:38 | PD.RAD ---
Post US Procedure Prog Note Pre Procedure Diagnosis: (1) Ascites Post Procedure Diagnosis: (1) Ascites Procedure Date: Oct 07, 2017 Supervising Radiologist: Giorgio Armendariz Estimated blood loss: none. Anesthesia: Local Plan of Activity Patient to Unit: [facility] Patient Condition: Good See PACS Report for procedural detail/treatment Drainage Procedure Procedure 1 Imaging Guidance: Ultrasound Side: Right Procedure Type: Paracentesis Drainage: Suction Fluid Removal (CCs): 33321 Fluid Description: Clear, Yellow Plan to [facility] for albumin then discharge. Giorgio Armendariz MD Oct 07, 2017 13:38
--- NOTE | 2017-10-07 13:40 | RADRPT ---
EXAM DATE/TIME: 10/07/2017 08:39 [facility] COMPARISON: US GUIDED ABD PARACENTESIS, August 23, 2017, 10:14. INDICATIONS : Ascites. MEDICAL HISTORY : Hypercholesterolemia. Cirrhosis. Gastroesophageal reflux disease. Hiatal hernia. CAD. HTN. Fatty live r. Diverticulitis. Hyperlipdemia. SURGICAL HISTORY : Appendectomy. Inguinal hernia repair. Cardiac catheterization. Knee surgery. ENCOUNTER: Subsequent ACUITY: 1 month PAIN SCORE: 0/10 LOCATION: Right lower quadrant [place] [address] cc of clear, yellow fluid was removed. Fluid was sent to lab for ordered studies. Post procedure scanning reveals no hematoma or other complication. TECHNIQUE: 1. Ultrasound guidance for abdominal paracentesis. 2. Paracentesis. The risks, benefits, and alternatives to ultrasound guided paracentesis were explained to the patient in detail including the risk of bleeding and infection. Written and verbal informed consent was obt ained. With the patient on the ultrasound table, ultrasound imaging was used to select the most appropriate approach for paracentesis. Overlying skin was prepped and draped in the usual sterile fashion and wi th a local anesthetic, a dermatotomy was made with an 11 blade scalpel. A 6 Amharic Aho-Y-[id number] ca theter was introduced into the peritoneal cavity and fluid was collected. The patient tolerated the procedure well and left the ultrasound suite in stable condition. CONCLUSION: Uncomplicated ultrasound guided paracentesis. Giorgio Armendariz MD on October 07, 2017 at 13:35 Board Certified Radiologist. This report was verified electronically.
== END 2017-10-07 14:18 | disposition home health service (06) | DRG 641 ==
LOC: NEPC 17:52 → NEDA 19:34 → N06A 20:29
PROVIDERS: ADMIT Hospitalist; ATTEND Hospitalist
PROC: 0W9G3ZZ Drainage of Peritoneal Cavity, Percutaneous Approach (ICD-10-PCS; principal; 2017-10-07)
DX: E87.1 Hypo-osmolality and hyponatremia (principal); D68.8 Other specified coagulation defects; D69.6 Thrombocytopenia, unspecified; K70.31 Alcoholic cirrhosis of liver with ascites; K72.90 Hepatic failure, unspecified without coma; I10 Essential (primary) hypertension; F17.210 Nicotine dependence, cigarettes, uncomplicated; F10.10 Alcohol abuse, uncomplicated; Z91.19 Patient's noncompliance with other medical treatment and regimen; Z86.73 Personal history of transient ischemic attack (TIA), and cerebral infarction without residual deficits; Z79.02 Long term (current) use of antithrombotics/antiplatelets; Z79.82 Long term (current) use of aspirin; Z96.652 Presence of left artificial knee joint
CPT/HCPCS: 49083; 80048; 80053; 82140; 83735; 84100; 84295; 85025; 85610; 85730; 87070; 87205; 88112; 88305; 89051; 93005; 96360; C1729; J1940; J3475; J7030; J7040; P9047

== ENCOUNTER 2017-11-08 07:55 | Day surgery (SDC) | payer BC ==
[~2017-11-08 07:55] MED LIST changes: +ALDA50TA2 PO; +AMLO10TA2 PO; +ASPI81CH6 CHEW; -BUSP10TA PO; +CETI10CH CHEW; +DIPH50LI13; +HUMIBIDDM PO; +LOMO2.5T PO; -LORA-650 PO; +PLAV75TA29 PO; +SIME180C2 PO; -SPIR25 PO
[2017-11-08 08:12] VITALS: BP 114/72; PULSE 72; RESP 16; TEMP 97.8; O2SAT 94
[2017-11-08 10:15] VITALS: BP 92/62; PULSE 55; RESP 18; TEMP 97.5; O2SAT 96
[2017-11-08 10:30] VITALS: BP 97/58; PULSE 76; RESP 18; O2SAT 94
[2017-11-08] MEDS ORDERED: ALBUMIN HUMAN 25% 75 GM IV ONE (11:00)
--- NOTE | 2017-11-08 12:19 | RADRPT ---
EXAM DATE/TIME: 11/08/2017 08:06 [facility] COMPARISON: EXTERNAL COMPARISON: US GUIDED ABD PARACENTESIS, October 07, 2017, 8:39. [facility], CT ABDOMEN PELVIS W/ CONTRAST, Aug [address] ABDOMEN AND PELVIS W/ CONTRAST, December 18, 2015. INDICATIONS : Ascites. MEDICAL HISTORY : Hypercholesterolemia. Cirrhosis. Gastroesophageal reflux disease. Hiatal hernia. CAD. HTN. Fatty live r. Diverticulitis. Hyperlipdemia. SURGICAL HISTORY : Appendectomy. Inguinal hernia repair. Cardiac catheterization. Knee surgery. ENCOUNTER: Subsequent ACUITY: 1 month PAIN SCORE: 5/10 LOCATION: Right lower quadrant FLUID: Total volume of 15,250 cc of clear, yellow fluid was removed. Fluid was discarded. Paracentesis was therapeutic only. Post procedure scanning reveals no hematoma or other complication. TECHNIQUE: 1. Ultrasound guidance for abdominal paracentesis. 2. Paracentesis. The risks, benefits, and alternatives to ultrasound guided paracentesis were explained to the patient in detail including the risk of bleeding and infection. Written and verbal informed consent was obt ained. With the patient on the ultrasound table, ultrasound imaging was used to select the most appropriate approach for paracentesis. Overlying skin was prepped and draped in the usual sterile fashion and wi th a local anesthetic, a dermatotomy was made with an 11 blade scalpel. A 6 Slovak Yvd-[id number] ca theter was introduced into the peritoneal cavity and fluid was collected. The patient tolerated the procedure well and left the ultrasound suite in stable condition. CONCLUSION: Uncomplicated ultrasound guided paracentesis. Miller Jain MD on November 08, 2017 at 12:17 Board Certified Radiologist. This report was verified electronically.
[2017-11-08] MEDS ORDERED: LIDOCAINE HCL 1% 20 ML VIAL ONE (15:05)
== END 2017-11-08 11:55 | disposition home or self-care (01) ==
LOC: HRAD 07:55 → HRIP 07:58 → HRAD 11:55
PROVIDERS: ATTEND Internal Medicine Gastroenterology
DX: R18.8 Other ascites (principal); K74.60 Unspecified cirrhosis of liver; K76.0 Fatty (change of) liver, not elsewhere classified; E78.00 Pure hypercholesterolemia, unspecified; K21.9 Gastro-esophageal reflux disease without esophagitis; K44.9 Diaphragmatic hernia without obstruction or gangrene; I25.10 Atherosclerotic heart disease of native coronary artery without angina pectoris; I10 Essential (primary) hypertension; E78.5 Hyperlipidemia, unspecified; K57.92 Diverticulitis of intestine, part unspecified, without perforation or abscess without bleeding
CPT/HCPCS: 49083; 96365; C1729; P9047

== ENCOUNTER 2017-12-06 08:00 | Day surgery (SDC) | payer BC ==
[2017-12-06 08:15] VITALS: BP 124/72; PULSE 90; RESP 16; TEMP 97.2; O2SAT 96
[2017-12-06 10:10] VITALS: BP 98/58; PULSE 76; RESP 16; TEMP 97.9; O2SAT 99
[2017-12-06 10:40] VITALS: BP 90/52; PULSE 72; RESP 16; O2SAT 99
[2017-12-06] MEDS ORDERED: ALBUMIN 25% INJ 300 ML IV ONE (11:00)
[2017-12-06] MEDS ORDERED: LIDOCAINE HCL 1% PF 30 ML VIAL ONE (11:33)
--- NOTE | 2017-12-07 08:14 | RADRPT ---
EXAM DATE: 12/06/2017 10:17 AM EDT AGE/SEX: 57 years / Male INDICATIONS: Ascites. CLINICAL DATA: This is the patient's subsequent encounter. Patient reports that signs and symptoms h ave been present for 1 month and indicates a pain score of 3/10. MEDICAL/SURGICAL HISTORY: Hypercholesterolemia. Hypertension. Gastroesophageal reflux disease . Coronary artery disease. Cirrhosis. Appendectomy. Total knee replacement, left. Inguinal hernia repair. Cardiac catheterization. COMPARISON: [facility] [place], [place] GUIDED ABD PARACENTESIS, 11/08/2017. . FLUID: Total volume of 13,500 cc of clear, yellow fluid was removed. Fluid was discarded. Paracentesis was t herapeutic only. . . TECHNIQUE: Ultrasound guidance for abdominal paracentesis. Paracentesis. The risks, benefits, and alternatives to ultrasound guided paracentesis were explained to the patient in detail including the risk of bleeding and infection. Written and verbal informed consent was obt ained. With the patient on the ultrasound table, ultrasound imaging was used to select the most appropriate approach for paracentesis. Overlying skin was prepped and draped in the usual sterile fashion and wi th a local anesthetic, a dermatotomy was made with an 11 blade scalpel. A 6 Bengali Nox-R-ybmwkxjy ca theter was introduced into the peritoneal cavity and fluid was collected. Post procedure scanning reveals no hematoma or other complication. The patient tolerated the procedu re well and left the ultrasound suite in stable condition. FINDINGS: Successful ultrasound-guided paracentesis as described above. CONCLUSION: 1. Successful ultrasound-guided paracentesis. Electronically signed by: Domingo Sam MD 12/07/2017 8:13 AM EDT
== END 2017-12-06 11:10 | disposition home or self-care (01) ==
LOC: HRAD 08:00 → HRIP 09:13 → HRAD 11:10
PROVIDERS: ATTEND Internal Medicine Gastroenterology
DX: R18.8 Other ascites (principal); K74.60 Unspecified cirrhosis of liver; I10 Essential (primary) hypertension; I25.10 Atherosclerotic heart disease of native coronary artery without angina pectoris; E78.00 Pure hypercholesterolemia, unspecified; K21.9 Gastro-esophageal reflux disease without esophagitis; Z96.652 Presence of left artificial knee joint
CPT/HCPCS: 49083; 96365; C1729; P9047